=== PATIENT | female | born 1930 | race Caucasian/White ===

== ENCOUNTER 2016-09-17 13:19 | Inpatient (IN) | payer OTHER ==
[2016-09-17] MEDS ORDERED: NS 1,000 ML IV ONE (13:52)
--- NOTE | 2016-09-17 13:52 | EDPHY ---
H & P Stated Complaint: l sided abd/flank pain last night/now with blood in urine HPI/ROS: HPI CHIEF COMPLAINT: Abdominal times 24 hours HISTORY OF PRESENT ILLNESS: This patient is a very pleasant 86-year-old female , significant past medical history for diverticulosis and diverticulitis, urinary tract infection, GERD, hypertension, presents emergency room with 24 hours of lower abdominal pain specifically in her left lower quadrant suprapubic region. She went saw her primary care doctor today thought maybe she had a urinary tract infection. She had a clean urinalysis except for some blood. She is referred to the emergency room for possible kidney stone. Patient denies any vomiting, fever, flank pain. Pain is located in lower abdomen. No diarrhea. Past Medical History: Diverticulitis, diverticulosis, hypertension, GERD, urinary tract infection Past Surgical History: No recent surgery Social History: Denies daily use drugs alcohol tobacco products, at bedside, son at bedside Family History: Noncontributory ROS REVIEW OF SYSTEMS: A comprehensive 10 point review of systems is otherwise negative aside from elements mentioned in the history of present illness. Exam Constitutional triage nursing summary reviewed, vital signs reviewed, awake/ alert. Eyes normal conjunctivae and sclera, EOMI, PERRLA. HENT normal inspection, atraumatic, moist mucus membranes, no epistaxis, neck supple/ no meningismus, no raccoon eyes. Respiratory clear to auscultation bilaterally, normal breath sounds, no respiratory distress, no wheezing. Cardiovascular rate normal, regular rhythm, no murmur, no edema, distal pulses normal. Gastrointestinal tender palpation lower abdomen specifically left lower quadrant, suprapubic and right lower quadrant, moderate amount of tenderness no rebound, no guarding, normal bowel sounds, no distension, no pulsatile mass. Genitourinary no CVA tenderness. Musculoskeletal no midline vertebral tenderness, full range of motion, no calf swelling, no tenderness of extremities, no meningismus, good pulses, neurovascularly intact. Skin pink, warm, & dry, no rash, skin atraumatic. Neurologic awake, alert and oriented x 3, AAOx3, moves all 4 extremities equally, motor intact, sensory intact, CN II-XII intact, normal cerebellar, normal vision, normal speech. Psychiatric normal mood/affect. Heme/Lymph/Immune no lymphadenopathy. Differential diagnosis includes but is not limited to and in no particular order : Bowel obstruction, appendicitis, gallbladder disease, diverticulitis, colitis , enteritis, perforated viscus, gastritis, GERD, esophagitis, urinary tract infection, pyelonephritis, kidney stones Medical Decision Making: Plan for this patient IV establishment, IV blood work , check abdominal labs, including lactic acid, CT abdomen pelvis with IV contrast for acute diverticulitis colitis, or other intra acute intra-abdominal process. Re-evaluation: CT scan of the abdomen pelvis with IV contrast The results of the study are this shows acute diverticulitis without perforation or abscess or free fluid. The study was read by Dr. Jeremy Mcgraw I viewed the images myself on the PACS system. 1608: I did update the patient she has acute diverticulitis throughout her colon no free air no free fluid no abscess. I will admit the patient to Dr. Nye the hospitalist service [facility] surgical [facility]. She is hemodynamically stable. IV Cipro and IV Flagyl been ordered. She agrees with this plan. Resting comfortably. Source: Patient - Personal History Current Tetanus/Diphtheria Vaccine: Yes - Medical/Surgical History Hx Asthma: No Hx Chronic Respiratory Disease: No Hx Diabetes: No Hx Cardiac Disease: No Hx Renal Disease: No Hx Cirrhosis: No Hx Alcoholism: No Hx HIV/AIDS: No Hx Splenectomy or Spleen Trauma: No Other PMH: HTN, hyperthyroid, GERD, surinder, SBO, appy - Social History Smoking Status: Never smoked Constitutional: Initial Vital Signs Temperature (C) 36.6 C 09/17/16 13:30 Heart Rate 93 09/17/16 13:30 Respiratory Rate 18 09/17/16 13:30 Blood Pressure 137/72 H 09/17/16 13:30 O2 Sat (%) 95 09/17/16 13:30 O2 Delivery Mode Room Air Allergies/Adverse Reactions: aspirin Allergy (Verified 09/17/16 13:29) Sulfa (Sulfonamide Antibiotics) Allergy (Verified 09/17/16 13:29) Home Medications: Medication Instructions Recorded Irbesartan [Avapro 300 mg] 10/31/13 Mecobalamin [B-12] 10/31/13 Synthroid 09/17/16 Zantac 09/17/16 Medical Decision Making - Diagnostics Imaging Results: Imaging Impressions Abdomen CT 09/17/16 13:56 Impression: 1. Sigmoid diverticulitis with a small amount of free fluid with no visible abscess or free air. 2. Additional findings as above.. Findings discussed with Dr. Jaylan Diaz, on September 17, 2016 at 1552 hours. - Data Points Laboratory Results: Laboratory Results 09/17/16 14:00 09/17/16 14:00 09/17/16 09/17/16 09/17/16 14:57 14:25 14:00 WBC RBC Hgb Hct MCV MCH MCHC RDW Plt Count MPV Neut % (Auto) Lymph % (Auto) Collin % (Auto) Eos % (Auto) Baso % (Auto) Nucleat RBC Rel Count Absolute Neuts (auto) Absolute Lymphs (auto) Absolute Monos (auto) Absolute Eos (auto) Absolute Basos (auto) Absolute Nucleated RBC Immature Gran % Seg Neutrophils % Band Neutrophils % Lymphocytes % Monocytes % Immature Gran # Absolute Seg Neuts Absolute Band Neuts Absolute Lymphocytes Absolute Monocytes RBC/WBC/PLT Morphology Platelet Estimate Smear Review By PT INR APTT VBG Lactic Acid 0.7 mmol/L mmol/L (0.7-2.1) Sodium 133 mEq/L L mEq/L (134-144) Potassium 3.6 mEq/L mEq/L (3.5-5.2) Chloride 99 mEq/L mEq/L (97-110) Carbon Dioxide 24 mEq/l mEq/l (22-31) Anion Gap 10 mEq/L mEq/L (8-16) BUN 12 mg/dL mg/dL (7-23) Creatinine 0.8 mg/dL mg/dL (0.6-1.0) Estimated GFR > 60 Glucose 153 mg/dL H mg/dL (70-100) Calcium 9.0 mg/dL mg/dL (8.5-10.4) Total Bilirubin 0.9 mg/dL mg/dL (0.1-1.4) Conjugated Bilirubin 0.3 mg/dL mg/dL (0.0-0.5) Unconjugated Bilirubin 0.6 mg/dL mg/dL (0.0-1.1) AST 18 IU/L IU/L (14-46) ALT 31 IU/L IU/L (9-52) Alkaline Phosphatase 38 IU/L IU/L (38-126) Total Protein 6.6 g/dL g/dL (6.3-8.2) Albumin 3.8 g/dL g/dL (3.5-5.0) Lipase 171.0 IU/L IU/L (23-300) Urine Color YELLOW Urine Appearance CLEAR Urine pH 6.0 (5.0-7.5) Ur Specific Buhl 1.012 (1.002-1.030) Urine Protein 1+ H (NEGATIVE) Urine Ketones 1+ H (NEGATIVE) Urine Blood 2+ H (NEGATIVE) Urine Nitrate NEGATIVE (NEGATIVE) Urine Bilirubin NEGATIVE (NEGATIVE) Urine Urobilinogen NEGATIVE EU EU (0.2-1.0) Ur Leukocyte Esterase NEGATIVE (NEGATIVE) Urine RBC 10-15 /hpf H /hpf (0-3) Urine WBC NONE SEEN /hpf /hpf (0-3) Ur Epithelial Cells NONE SEEN /lpf /lpf (NONE-1+) Urine Bacteria TRACE /hpf H /hpf (NONE SEEN) Urine Mucus TRACE /lpf /lpf (NONE-1+) Urine Glucose NEGATIVE (NEGATIVE) 09/17/16 09/17/16 14:00 14:00 WBC 12.06 10^3/uL H 10^3/uL (3.80-9.50) RBC 4.02 10^6/uL L 10^6/uL (4.18-5.33) Hgb 12.3 g/dL L g/dL (12.6-16.3) Hct 36.1 % L % (38.0-47.0) MCV 89.8 fL fL (81.5-99.8) MCH 30.6 pg pg (27.9-34.1) MCHC 34.1 g/dL g/dL (32.4-36.7) RDW 13.8 % % (11.5-15.2) Plt Count 136 10^3/uL L 10^3/uL (150-400) MPV 11.1 fL fL (8.7-11.7) Neut % (Auto) Not Reported Lymph % (Auto) Not Reported Collin % (Auto) Not Reported Eos % (Auto) Not Reported Baso % (Auto) Not Reported Nucleat RBC Rel Count 0.0 % % (0.0-0.2) Absolute Neuts (auto) Not Reported Absolute Lymphs (auto) Not Reported Absolute Monos (auto) Not Reported Absolute Eos (auto) Not Reported Absolute Basos (auto) Not Reported Absolute Nucleated RBC 0.00 10^3/uL 10^3/uL (0-0.01) Immature Gran % Not Reported Seg Neutrophils % 65 % % Band Neutrophils % 1 % % Lymphocytes % 15 % % Monocytes % 19 % % Immature Gran # Not Reported Absolute Seg Neuts 7.84 10^/uL H 10^/uL (1.70-6.50) Absolute Band Neuts 0.12 10^3/uL 10^3/uL (0.00-0.70) Absolute Lymphocytes 1.81 10^3/uL 10^3/uL (1.00-3.00) Absolute Monocytes 2.29 10^3/uL H 10^3/uL (0.30-0.80) RBC/WBC/PLT Morphology NORMAL (NORMAL) Platelet Estimate DECREASED L (ADEQ) Smear Review By Pending PT 14.6 SEC SEC (12.0-15.0) INR 1.15 (0.83-1.16) APTT 27.7 SEC SEC (23.0-38.0) VBG Lactic Acid Sodium Potassium Chloride Carbon Dioxide Anion Gap BUN Creatinine Estimated GFR Glucose Calcium Total Bilirubin Conjugated Bilirubin Unconjugated Bilirubin AST ALT Alkaline Phosphatase Total Protein Albumin Lipase Urine Color Urine Appearance Urine pH Ur Specific Buhl Urine Protein Urine Ketones Urine Blood Urine Nitrate Urine Bilirubin Urine Urobilinogen Ur Leukocyte Esterase Urine RBC Urine WBC Ur Epithelial Cells Urine Bacteria Urine Mucus Urine Glucose Medications Given: Discontinued Medications Fentanyl (Sublimaze) 50 mcg IVP EDNOW ONE Stop: 09/17/16 13:57 Last Admin: 09/17/16 14:39 Dose: Not Given Sodium Chloride (Ns) 1,000 mls @ 0 mls/hr IV ONCE ONE; Wide Open PRN Reason: Protocol Stop: 09/17/16 13:53 Last Admin: 09/17/16 14:37 Dose: 1,000 mls Ondansetron HCl (Zofran) 4 mg IVP EDNOW ONE Stop: 09/17/16 13:57 Last Admin: 09/17/16 14:38 Dose: Not Given Departure - Departure Disposition: [facility] Inpatient Acute Clinical Impression: Acute diverticulitis Condition: Fair Referrals: Jaylan Franklin MD [Primary Care Provider] - As per Instructions
[2016-09-17] MEDS ORDERED: ONDANSETRON 4 MG/2 ML VIAL IVP ONE (13:56)
[2016-09-17] MEDS ORDERED: fentaNYL 100 MCG/2 ML INJ IVP ONE (13:56)
[2016-09-17 14:22] LABS: ADD DIFF? YES; ADD MORPH? NO; ADD SCAN? NO; ATYPICAL LYMPHOCYTE FLAG 10 (0-99); FRAGMENT RBC FLAG 0 (0-99); HEMATOCRIT 36.1 % (38.0-47.0); HEMOGLOBIN 12.3 g/dL (12.6-16.3); LEFT SHIFT FLG 0 (0-99); LIPEMIA HEMOLYSIS FLAG 90 (0-99); MEAN CELL HEMOGLOBIN 30.6 pg (27.9-34.1); MEAN CELL HEMOGLOBIN CONCENTR. 34.1 g/dL (32.4-36.7); MEAN CELL VOLUME 89.8 fL (81.5-99.8); MEAN PLATELET VOLUME 11.1 fL (8.7-11.7); PLATELET CLUMPS FLAG 20 (0-99); PLATELET COUNT 136 10^3/uL (150-400); RED BLOOD CELL COUNT 4.02 10^6/uL (4.18-5.33); RED CELL DISTRIBUTION WIDTH 13.8 % (11.5-15.2)
[2016-09-17 14:33] LABS: ALANINE AMINOTRANSFERASE 31 IU/L (9-52); ALBUMIN 3.8 g/dL (3.5-5.0); ALKALINE PHOSPHATASE 38 IU/L (38-126); ANION GAP 10 mEq/L (8-16); ASPARTATE AMINOTRANSFERASE 18 IU/L (14-46); BILIRUBIN,TOTAL 0.9 mg/dL (0.1-1.4); BILIRUBIN-CONJUGATED 0.3 mg/dL (0.0-0.5); BILIRUBIN-UNCONJUGATED 0.6 mg/dL (0.0-1.1); CARBON DIOXIDE 24 mEq/l (22-31); CHLORIDE 99 mEq/L (97-110); CREATININE 0.8 mg/dL (0.6-1.0); GLOMERULAR FILTRATION RATE > 60; GLUCOSE 153 mg/dL (70-100); POTASSIUM 3.6 mEq/L (3.5-5.2); SODIUM 133 mEq/L (134-144); TOTAL PROTEIN 6.6 g/dL (6.3-8.2)
[2016-09-17 14:40] LABS: INR 1.15 (0.83-1.16); PROTIME(PATIENT) 14.6 SEC (12.0-15.0)
[2016-09-17 14:41] LABS: APTT 27.7 SEC (23.0-38.0)
[2016-09-17] MEDS ORDERED: IOPAMIDOL (ISOVUE-300) 100 ML BTL ONE (14:50)
[2016-09-17 14:56] LABS: COLOR YELLOW; LEUKOCYTE ESTERASE,URINE NEGATIVE (NEGATIVE); NITRITE,URINE NEGATIVE (NEGATIVE)
[2016-09-17 15:08] LABS: BACTERIA TRACE /hpf (NONE SEEN); MUCUS TRACE /lpf (NONE-1+); WBC,URINE NONE SEEN /hpf (0-3)
[2016-09-17 15:12] LABS: PLATELET ESTIMATE DECREASED (ADEQ)
[2016-09-17] MEDS ORDERED: CIPROFLOXACIN 400 MG/DEXTROSE 200 ML IV ONE (15:55)
[2016-09-17] MEDS ORDERED: ONDANSETRON 4 MG/2 ML VIAL IVP PRN (16:19)
[2016-09-17] MEDS ORDERED: ONDANSETRON DISINTEGRATING 4 MG TAB PO PRN (16:19)
[2016-09-17] MEDS ORDERED: ACETAMINOPHEN 325 MG TAB PO PRN (16:19)
[2016-09-17] MEDS ORDERED: HYDROmorphONE/DILAUDID 1 MG/ML SYR IVP PRN (16:55)
--- NOTE | 2016-09-17 17:45 | GHP ---
[f rep st] HISTORY AND PHYSICAL DATE OF ADMISSION: 09/17/2016 CHIEF COMPLAINT: Diverticulitis. HISTORY OF PRESENT ILLNESS: a very pleasant, 86-year-old female with history of recurrent diverticulitis, history of a partial right hemicolectomy (unknown reason per patient) presenting with acute abdominal pain similar to prior episodes of diverticulitis. Lower abdominal pain started Thursday in that was achy in nature. It was so bad last night that she was doubled over. c/o subjective fevers, chills, and sweats. Saw her PCP, Dr. Franklin, today and was told her temperature was a 103. She denies any nausea, vomiting or diarrhea. Had a headache today. Her last bowel movement was yesterday, but had to strain. Could not have a bowel movement today due to abdominal pain. She has been treated several times for same issue here and in [place]. Abdominal pain, constipation and diarrhea is intermittent. Seen by [facility] dermatology previously, but no definitive answer for intermittent abdominal pain. REVIEW OF SYSTEMS: I completed a 10-point review of systems, negative except as noted in HPI. PAST MEDICAL HISTORY: 1. Moderate diverticulitis in 2011 at [facility]. 2. Recurrent abdominal pain. Intermittent diarrhea/constipation. 3. GERD. 4. Hypertension. 5. Hypothyroidism. 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 PAST SURGICAL HISTORY: 1. Cholecystectomy. 2. Partial right hemicolectomy based on imaging here. Patient not clear on why she had that surgery in the past. 3. Appendectomy. 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 Has 1 child. No alcohol, tobacco or illicits. ALLERGIES: Sulfa, aspirin, added ciprofloxacin due to tendinopathy. FAMILY HISTORY: No bowel cancers. PHYSICAL EXAM: VITAL SIGNS: Temperature 36.6, blood pressure 132/72, heart rate 93 now 78, 90% on room air. GENERAL: Well-appearing female, in no acute distress, lying in bed. HEENT: PERRLA. EOMI. Oropharynx clear. CV: Regular rate and rhythm. No murmurs, gallops, rubs. LUNGS: Clear to auscultation bilaterally. ABDOMEN: Soft, nondistended. Tender lower quadrant midline. No rebound or guarding. Mild bowel sounds. MUSCULOSKELETAL: 5/5 upper lower extremity strength. NEURO: 2 through 12 intact. PSYCH: Alert and oriented x3. Very pleasant. LABORATORY DATA: WBCs 12, hemoglobin 12.3, hematocrit 36.1, platelets 136. Sodium 133, potassium 3.6, chloride 99, carbon dioxide 24, creatinine 0.8, glucose 153, calcium 9. LFTs within normal. CT scan: Circumferential thickening of the sigmoid colon in the region of innumerable diverticula with moderate mesenteric stranding and a region of small amount of fluid with no visible free air or abscess. The colon and small bowel are normal caliber. Moderate stool is present in the colon. Partial right hemicolectomy is suspected with scattered surgical clips. ASSESSMENT AND PLAN: 1. Acute diverticulitis: has been treated several times in the past. CT today shows heavy burden of diverticula in the sigmoid colon today with some mesenteric stranding but no overt perforation. WBC mildly elevated to 12. Treat with Ertapenem given fluoroquinolone-tendinopathy. Dr. Nunes will evaluated. Clear liquid now and low-fiber for 2 weeks 2. Hypothyroidism: levothyroxine. 3. Hypertension: Avapro. 4. Diet: Clears. 5. Deep venous thrombosis prophylaxis: SCDs. Disp: warrants observation admission given acute diverticulitis requiring IV abx and surgical evaluation. /[id number]/MODL MTDD
[2016-09-17] MEDS: NS 1,000 ML IV SCH (17:59)
[2016-09-17] MEDS: ERTAPENEM 1 GM in NS 100 ML IV SCH (18:02)
--- NOTE | 2016-09-17 19:44 | PDCONSULT ---
Discotheque [employer]cer Note: Surgical Consult CC: abd pain HPI: Mendel is an 86 y/o female who presented today with abdominal pain of 2 days duration. She was seen in the ED and a CT of the abd/pelvis was performed and she was found to have sigmoid diverticulitis. She has had several attacks in the past. She was admitted by Dr. Nye and surgical consultation was requested. PMH: appendectomy with resection of cecum/terminal ileum for perforated appendicitis 10 years ago (complicated by wound infection) cholecystectomy Hx: HTN, hypothyroidism, GERD, remote hx Tb meds: Irbesartan, Levothyroxine, Ranitidine all: aspirin, cipro (tendinopathy), sulfa non-smoker FH: grandmother of colon cancer in her 70's SH: , originally from [facility] she and her alternate living in [place] and [place] every 3 [address] daily for exercise PE: pleasant and articulate elderly woman in mild distress abd: soft/+BS, tender suprapubic with mild guarding/no rebound RLQ transverse incision with incisional hernia CT scan reviewed: sigmoid diverticulitis with small amount of free fluid in the pelvis no free air, prior partial right colectomy, surgical cholecystectomy wbc 12K UA >20 rbc Imp:1.recurrent diverticulitis, uncomplicated thus far 2. prior partial right colectomy for perforated appendicitis 3. s/p cholecystectomy 4. incision hernia 5. HTN 6. hypothyroidism 7. GERD 8. Family history of colon cancer 9. remote history of Tb 10. micro hematuria Rec: I agree with Ertapenam for initial treatment and would consider switching to Amoxacillin/Clavulonic Acid when she is clinically improved. We discussed the indications for emergent and elective colon resection. There is no indication for emergent intervention at this time. She would like to consider elective partial colectomy and is in reasonable enough health to consider this. I would wait 6 weeks and refer her for colonoscopy prior to surgery. Bjorn Nunes MD, FACS
[2016-09-17] MEDS: FAMOTIDINE 20 MG TAB PO SCH (20:30)
[2016-09-18 05:01] LABS: HEMOGLOBIN 12.4 g/dL (12.6-16.3); MEAN CELL HEMOGLOBIN 31.2 pg (27.9-34.1); MEAN CELL HEMOGLOBIN CONCENTR. 34.4 g/dL (32.4-36.7); MEAN CELL VOLUME 90.5 fL (81.5-99.8); RED BLOOD CELL COUNT 3.98 10^6/uL (4.18-5.33)
[2016-09-18] MEDS: NS 1,000 ML IV SCH (05:08)
[2016-09-18 05:13] LABS: ANION GAP 8 mEq/L (8-16); CALCIUM 8.6 mg/dL (8.5-10.4); CARBON DIOXIDE 21 mEq/l (22-31); CHLORIDE 108 mEq/L (97-110); CREATININE 0.7 mg/dL (0.6-1.0); GLOMERULAR FILTRATION RATE > 60; GLUCOSE 91 mg/dL (70-100); POTASSIUM 3.6 mEq/L (3.5-5.2); SODIUM 137 mEq/L (134-144)
--- NOTE | 2016-09-18 06:41 | SOAPPROG ---
Downtime Inpatient Late Entry SOAP Note: Ilga is resting comfotably/she has only had water to drink and is not passing flatus or stool/no fever spikes-BP is elevated Abd: soft, tender LLQ -no guarding or rebound Her wbc is 9.8 platlets down to 118K Imp: diverticulitis mild anemia/thromocytopenia mild hypertension hematuria Rec: clear liquid diet, continue IV Ertapenam and transition to oral ABX tomorrow if continued improvement Vivienne Nunes MD, FACS
[2016-09-18] MEDS: ERTAPENEM 1 GM in NS 100 ML IV SCH (08:42)
[2016-09-18] MEDS: CYANO/VITAMIN B12 1000 MCG TAB PO SCH (08:44)
[2016-09-18] MEDS: LEVOTHYROXINE 50 MCG TAB PO SCH (08:45)
[2016-09-18] MEDS: IRBESARTAN 75 MG TAB PO SCH (08:45)
[2016-09-18] MEDS: FAMOTIDINE 20 MG TAB PO SCH ×2 (08:45→21:30)
--- NOTE | 2016-09-18 13:33 | HOSPPROG ---
Hospitalist Progress Note Assessment/Plan: * acute diverticulitis * improving * continue Invanz * advancing diet * possibly home tomorrow on oral antibiotics * history of hypertension * hypothyroidism Subjective: Abdominal pain is resolved. Objective: Vital Signs Temp Pulse Resp BP Pulse Ox 36.8 C 68 14 138/64 H 90 L 09/18/16 11:57 09/18/16 11:57 09/18/16 11:57 09/18/16 11:57 09/18/16 11:57 Laboratory Results 09/18/16 04:38 09/18/16 04:38 09/17/16 09/18/16 09/19/16 05:59 05:59 05:59 Intake Total 1000 Output Total 600 Balance 400 PT 14.6 SEC (12.0-15.0) 09/17/16 14:00 INR 1.15 (0.83-1.16) 09/17/16 14:00 - Physical Exam Constitutional: no apparent distress, appears nourished, not in pain Eyes: anicteric sclera, EOMI Ears, Nose, Mouth, Throat: moist mucous membranes, hearing normal Cardiovascular: regular rate and rhythym Respiratory: no respiratory distress, no rales or rhonchi, clear to auscultation Gastrointestinal: normoactive bowel sounds, other ( Some distention, soft, tympanic no tenderness) Skin: warm Neurologic: AAOx3 Psychiatric: interacting appropriately, not anxious, not encephalopathic, thought process linear ICD10 Worksheet Patient Problems: Problems Problem Status Onset Acute diverticulitis Acute
[2016-09-19 05:26] LABS: HEMATOCRIT 33.7 % (38.0-47.0); HEMOGLOBIN 11.7 g/dL (12.6-16.3); MEAN CELL HEMOGLOBIN 31.2 pg (27.9-34.1); MEAN CELL HEMOGLOBIN CONCENTR. 34.7 g/dL (32.4-36.7); MEAN CELL VOLUME 89.9 fL (81.5-99.8); RED BLOOD CELL COUNT 3.75 10^6/uL (4.18-5.33); RED CELL DISTRIBUTION WIDTH 13.8 % (11.5-15.2)
[2016-09-19] MEDS: LEVOTHYROXINE 50 MCG TAB PO SCH (07:36)
[2016-09-19] MEDS: FAMOTIDINE 20 MG TAB PO SCH (07:36)
[2016-09-19] MEDS: CYANO/VITAMIN B12 1000 MCG TAB PO SCH (07:37)
[2016-09-19 08:56] VITALS: BP 133/81; PULSE 68; RESP 18; TEMP 98.2; O2SAT 91
[2016-09-19] MEDS: ERTAPENEM 1 GM in NS 100 ML IV SCH (10:31)
[2016-09-19] MEDS: IRBESARTAN 75 MG TAB PO SCH (10:31)
--- NOTE | 2016-09-19 14:36 | GDS ---
[f rep st] DISCHARGE SUMMARY DISCHARGE DIAGNOSES: 1. Acute diverticulitis. 2. Hypertension. HOSPITAL COURSE: This is an 86-year-old female who presented with abdominal pain. The patient was diagnosed with diverticulitis on CT scan. She was started on Invanz. Her white blood cell count an d pain improved. She is ready to be discharged. DISPOSITION: Home. DISCHARGE MEDICATIONS: She will continue Augmentin for 10 more days to complete a 14-day course. TIME SPENT: Greater than 30 minutes was spent in discharge, especially counseling the patient on di et and dietary recommendations, and for reasons to come back to the Emergency Department if she wors ens. /[id number]/MODL
== END 2016-09-19 15:04 | disposition home or self-care (01) | DRG 392 ==
LOC: INTOOBSV 16:19 → F3E 17:26 → OBSVTOIN 09-18 14:33
PROVIDERS: ADMIT Internal Medicine; ATTEND Internal Medicine
DX: K57.32 Diverticulitis of large intestine without perforation or abscess without bleeding (principal); D64.9 Anemia, unspecified; I10 Essential (primary) hypertension; K21.9 Gastro-esophageal reflux disease without esophagitis; E03.9 Hypothyroidism, unspecified; Z86.11 Personal history of tuberculosis; Z87.440 Personal history of urinary (tract) infections
CPT/HCPCS: 81003-QW-PO; G0378; G0463-PO; J0744; J1335; J2405; J3010; Q9967

== ENCOUNTER → 2016-10-22 | Outpatient (CLI) | payer OTHER | LOC: FIMAGING 10:04 | PROVIDERS: ATTEND Internal Medicine | DX: E04.1 Nontoxic single thyroid nodule (principal) ==

== ENCOUNTER → 2017-04-08 | Outpatient (CLI) | payer OTHER | LOC: FIMAGING 14:02 | PROVIDERS: ATTEND Internal Medicine | DX: E04.1 Nontoxic single thyroid nodule (principal) ==

== ENCOUNTER → 2017-06-11 | Outpatient (CLI) | payer OTHER ==
[~2017-06-11] MED LIST: IOPAMIDOL (ISOVUE-300) 100 ML BTL ONE
== END ==
LOC: FIMAGING 10:27
PROVIDERS: ATTEND Internal Medicine Gastroenterology
DX: K57.32 Diverticulitis of large intestine without perforation or abscess without bleeding (principal)
CPT/HCPCS: 74177; Q9967

== ENCOUNTER 2017-06-14 19:42 | Inpatient (IN) | payer OTHER ==
[2017-06-14] MEDS ORDERED: PANTOPRAZOLE SODIUM 40 MG VIAL IVP ONE (20:28)
[2017-06-14] MEDS ORDERED: NS 1,000 ML IV ONE (20:28)
--- NOTE | 2017-06-14 20:39 | EDPHY ---
H & P Time Seen by Provider: 06/14/17 20:16 HPI/ROS: HPI Lower abdominal pain, history of diverticulitis. 87-year-old female by private vehicle with family. This patient has a long history of diverticulitis. She reports that recently she has been on 2 rounds of different antibiotics. She does not know the name of these antibiotics and I cannot find any medical records but she thinks that they include ciprofloxacin and metronidazole. She is currently being managed by head still operator Dr. Demarco. Dr. Demarco ordered a CT scan of her abdomen and pelvis this past June 11. This showed residual sigmoid diverticulitis and was otherwise unremarkable. Today she reports worsening left lower quadrant pain with radiation into her lower back. She reports that the pain became much more severe after eating some toast and egg and around lunchtime. She then tried have a bowel movement and was unable to. After some straining she then had a large episode of diarrhea with some blood mixed in with it. ROS: Constitutional: No fever, no chills. No weakness. Eyes: No discharge. No changes in vision. ENT: No sore throat. No nasal congestion or rhinorrhea. Respiratory: No cough. No shortness of breath. Cardiac: No chest pain, no palpitations. Gastrointestinal: As above. No vomiting. Genitourinary: No hematuria. No dysuria or increased frequency with urination. Musculoskeletal: No back pain. No neck pain. No myalgias or arthralgias. Skin: No rashes. Neurological: No headache. No focal weakness or altered sensation. Past medical history: As above. Hypertension, hypothyroidism, cholecystectomy , GERD, appendectomy. Social history: Here with her and son. Nonsmoker. No alcohol. Physical Exam: General Appearance: Alert, no distress at this time. This patient is responding to questions appropriately and in full sentences. This patient appears well-hydrated and well-nourished. Eyes: Pupils equal and round no pallor or injection. No lid edema, erythema or injection. Respiratory: There are no retractions, lungs are clear to auscultation with good air movement bilaterally. Cardiovascular: Regular rate and rhythm. No murmur. Gastrointestinal: Abdomen is soft with mild to moderate left lower quadrant tenderness on palpation, no masses, bowel sounds normal. No focal tenderness at McBurney's point. No White sign. Neurological: Motor sensory function is grossly intact. Cranial nerves are normal. Gait is normal. Skin: Warm and dry, no rashes. Musculoskeletal: Neck is supple and nontender. Extremities are symmetrical. All joints range without pain or impingement. Psychiatric: No agitation. No depression. Database: EKG: Imaging: Procedures: Emergency department course: IV placed. She was placed on a monitor. Vital signs reviewed. She is hypertensive. Vital signs otherwise normal. She is afebrile. She was started on IV normal saline with 1 L to be given over the next hour. 10:15 p.m., patient re-evaluated. She is resting comfortably at this time. She declines any pain medication. I discussed the results of her CT scan which was obtained last as noted above. I discussed the diagnosis of continued diverticulitis. She will be given 3 g of IV Unasyn in the emergency department. I discussed admission. Her son is present with her. All of their questions were answered. 10:20 p.m., spoke with on-call hospitalist Dr. Agarwal. Case discussed in detail with her. She accepts this patient for admission. The patient's remaining emergency department course under my care has been uneventful. She was admitted in stable condition. Differential Diagnosis: The differential diagnosis on this patient includes but is not limited to diverticulitis, diverticulosis. This represents a partial list of diagnoses considered. These considerations are based on history, physical exam, past history, reassessment and diagnostic testing. Smoking Status: Never smoked Constitutional: Initial Vital Signs Temperature (C) 36.5 C 06/14/17 19:46 Heart Rate 78 06/14/17 19:46 Respiratory Rate 18 06/14/17 19:46 Blood Pressure 198/81 H 06/14/17 19:46 O2 Sat (%) 94 06/14/17 19:46 O2 Delivery Mode Room Air Allergies/Adverse Reactions: aspirin Allergy (Verified 06/14/17 19:45) ciprofloxacin Allergy (Verified 06/14/17 19:45) Sulfa (Sulfonamide Antibiotics) Allergy (Verified 06/14/17 19:45) Home Medications: Medication Instructions Recorded Irbesartan [Avapro] 75 mg PO DAILY 09/17/16 Levothyroxine Sodium [SYNTHROID] 50 mcg PO DAILY 09/17/16 Ranitidine HCl [Zantac] 150 mg PO DAILY 09/17/16 Vitamin B12 (*) 1,000 mcg PO DAILY 09/17/16 Lact Cmb2/S.thermophl/Bif Cmb1 1 each PO DAILY #30 cap 09/19/16 [Vsl#3 Cap (*)] Medical Decision Making - Data Points Laboratory Results: Laboratory Results 06/14/17 20:10 06/14/17 20:10 06/14/17 06/14/17 06/14/17 21:09 20:50 20:10 WBC RBC Hgb Hct MCV MCH MCHC RDW Plt Count MPV Neut % (Auto) Lymph % (Auto) [place] % (Auto) Eos % (Auto) Baso % (Auto) Nucleat RBC Rel Count Absolute Neuts (auto) Absolute Lymphs (auto) Absolute Monos (auto) Absolute Eos (auto) Absolute Basos (auto) Absolute Nucleated RBC Immature Gran % Immature Gran # PT 16.7 SEC H SEC (12.0-15.0) INR 1.33 H (0.83-1.16) APTT 35.7 SEC SEC (23.0-38.0) Sodium 142 mEq/L mEq/L (135-145) Potassium 3.8 mEq/L mEq/L (3.5-5.2) Chloride 103 mEq/L mEq/L (97-110) Carbon Dioxide 23 mEq/l mEq/l (22-31) Anion Gap 16 mEq/L mEq/L (8-16) BUN 11 mg/dL mg/dL (7-23) Creatinine 0.7 mg/dL mg/dL (0.6-1.0) Estimated GFR > 60 Glucose 111 mg/dL H mg/dL (70-100) Calcium 9.4 mg/dL mg/dL (8.5-10.4) Total Bilirubin 0.6 mg/dL mg/dL (0.1-1.4) Conjugated Bilirubin 0.5 mg/dL mg/dL (0.0-0.5) Unconjugated Bilirubin 0.1 mg/dL mg/dL (0.0-1.1) AST 22 IU/L IU/L (14-46) ALT 25 IU/L IU/L (9-52) Alkaline Phosphatase 49 IU/L IU/L (38-126) Total Protein 9.4 g/dL H g/dL (6.3-8.2) Albumin 3.8 g/dL g/dL (3.5-5.0) Patient ABO/Rh A POSITIVE Antibody Screen NEGATIVE 06/14/17 20:10 WBC 4.43 10^3/uL 10^3/uL (3.80-9.50) RBC 4.05 10^6/uL L 10^6/uL (4.18-5.33) Hgb 12.4 g/dL L g/dL (12.6-16.3) Hct 36.4 % L % (38.0-47.0) MCV 89.9 fL fL (81.5-99.8) MCH 30.6 pg pg (27.9-34.1) MCHC 34.1 g/dL g/dL (32.4-36.7) RDW 14.6 % % (11.5-15.2) Plt Count 116 10^3/uL L 10^3/uL (150-400) MPV 11.8 fL H fL (8.7-11.7) Neut % (Auto) 34.7 % L % (39.3-74.2) Lymph % (Auto) 46.5 % H % (15.0-45.0) [place] % (Auto) 17.4 % H % (4.5-13.0) Eos % (Auto) 0.7 % % (0.6-7.6) Baso % (Auto) 0.2 % L % (0.3-1.7) Nucleat RBC Rel Count 0.0 % % (0.0-0.2) Absolute Neuts (auto) 1.54 10^3/uL L 10^3/uL (1.70-6.50) Absolute Lymphs (auto) 2.06 10^3/uL 10^3/uL (1.00-3.00) Absolute Monos (auto) 0.77 10^3/uL 10^3/uL (0.30-0.80) Absolute Eos (auto) 0.03 10^3/uL 10^3/uL (0.03-0.40) Absolute Basos (auto) 0.01 10^3/uL L 10^3/uL (0.02-0.10) Absolute Nucleated RBC 0.00 10^3/uL 10^3/uL (0-0.01) Immature Gran % 0.5 % % (0.0-1.1) Immature Gran # 0.02 10^3/uL 10^3/uL (0.00-0.10) PT INR APTT Sodium Potassium Chloride Carbon Dioxide Anion Gap BUN Creatinine Estimated GFR Glucose Calcium Total Bilirubin Conjugated Bilirubin Unconjugated Bilirubin AST ALT Alkaline Phosphatase Total Protein Albumin Patient ABO/Rh Antibody Screen Medications Given: Discontinued Medications Sodium Chloride (Ns) 1,000 mls @ 0 mls/hr IV EDNOW ONE; Wide Open PRN Reason: Protocol Stop: 06/14/17 20:29 Last Admin: 06/14/17 20:49 Dose: 1,000 mls Pantoprazole Sodium (Protonix) 80 mg IVP EDNOW ONE Stop: 06/14/17 20:29 Last Admin: 06/14/17 20:50 Dose: 80 mg Departure - Departure Disposition: [facility] Inpatient Acute Clinical Impression: Diverticulitis, Rectal bleeding, Diarrhea
[2017-06-14 21:03] LABS: PLATELET COUNT 116 10^3/uL (150-400)
[2017-06-14 21:32] LABS: INR 1.33 (0.83-1.16); PROTIME(PATIENT) 16.7 SEC (12.0-15.0)
[2017-06-14] MEDS ORDERED: AMPICILLIN/SULBACTAM 3 GM VIAL IV ONE (22:18)
[2017-06-14] MEDS ORDERED: HYDROmorphONE/DILAUDID 2 MG/ML INJ IVP PRN (22:36)
[2017-06-14] MEDS ORDERED: HYDROCODONE/APAP 5/325 TAB PO PRN (22:36)
[2017-06-14] MEDS ORDERED: ONDANSETRON 4 MG/2 ML VIAL IVP PRN (22:36)
[2017-06-14] MEDS ORDERED: ACETAMINOPHEN 325 MG TAB PO PRN (22:36)
[2017-06-15] MEDS: NS 1,000 ML IV SCH ×2 (00:52→14:41)
[2017-06-15 04:51] LABS: PLATELET COUNT 102 10^3/uL (150-400)
--- NOTE | 2017-06-15 05:11 | PDGENHP ---
History and Physical - Chief Complaint Lower quadrant abdominal pain - History of Present Illness Source-patient provides history and appears reliable. Her and son are at bedside supplements details. Case was discussed with ED provider. EMR was reviewed. HPI - this is a very pleasant 87-year-old female with past medical history significant for recurrent diverticulitis, diabetes type 2 diet controlled, GERD , history of remote TB, thyroid nodule, HTN who presents emergency department today with complaints of increasing abdominal pain left lower quadrant. Patient also notes that she has experienced 2 episodes of bloody diarrhea the 1st which was mixed with stool in the 2nd which was jan red blood bright red. Patient also is reporting some radiating pain to her left back which is a new symptom for her compared to previous episodes. She reports some subjective fevers and chills today. She has had some mild nausea without any vomiting. Patient did previously see her PCP a few days ago and started on Flagyl and Cipro. Patient does have a history of tendinopathy on with Cipro but no anaphylaxis. Patient reports that she has been taking her antibiotics on however she it may have initially started to feel a bit better on shortly after discontinuing antibiotics she began to feel worsening abdominal pain. Patient has been evaluated by Dr. Knight with GI. She was referred over for on a CT of her abdomen which showed persistent disease in the sigmoid colon. History Information - Allergies/Home Medication List Allergies/Adverse Reactions: aspirin Allergy (Verified 06/14/17 19:45) ciprofloxacin Allergy (Verified 06/14/17 19:45) Sulfa (Sulfonamide Antibiotics) Allergy (Verified 06/14/17 19:45) Home Medications: Irbesartan [Avapro] 75 mg PO DAILY 09/17/16 [Last Taken 09/17/16] Levothyroxine Sodium [SYNTHROID] 50 mcg PO DAILY 09/17/16 [Last Taken 09/16/16] Ranitidine HCl [Zantac] 150 mg PO DAILY 09/17/16 [Last Taken 09/16/16] Vitamin B12 (*) 1,000 mcg PO DAILY 09/17/16 [Last Taken Unknown] I have personally reviewed and updated: family history, medical history, social history, surgical history - Past Medical History Additional medical history: Diverticulitis, diabetes type 2 diet controlled, GERD, history TB, history of thyroid nodule, hypertension - Surgical History Additional surgical history: Slow cholecystectomy, appendectomy, partial colectomy right side of her colon at the time of her appendectomy. - Family History Additional family history: Mother with CAD and dementia, sister with VT, father with VT - Social History Smoking Status: Never smoked Alcohol Use: None Drug Use: None Additional social history: Patient is and lives with her . She spends part of the year in [place] any other part mentioned in. She has not had recent travel. Cor status-DNR Review of Systems Review of Systems: ROS: 10pt was reviewed & negative except for what was stated in HPI & below Constitutional: Reports: chills, fever EENMT: Denies: blurred vision, nose congestion Cardiac: Reports: no symptoms Respiratory: Reports: no symptoms Gastrointestinal: Reports: blood streaked stools, rectal bleeding (See HPI), nausea. Denies: vomitting Muscolosketal: Reports: back pain (Left lower quadrant radiating to the back). Denies: muscle pain Neurological: Reports: headache. Denies: tingling, weakness Hematologic/Lymphatic: Reports: no symptoms Physical Exam Physical Exam: Selected Entries 06/14/17 06/14/17 19:46 22:00 Blood Pressure Automatic Method Heart Rate 78 67 Respiratory 18 18 Rate O2 Sat (%) 94 96 Temperature (C) 36.5 C Blood Pressure 198/81 H 161/70 H Mean Arterial 120 H 100 Pressure (MAP) O2 Delivery Room Air Room Air Mode Temperature Oral Source Constitutional: no apparent distress, not in pain, other (NAD. Pleasant elderly frail-appearing female is lying quietly in bed. Her and son are at bedside.) Eyes: PERRL, anicteric sclera, EOMI Ears, Nose, Mouth, Throat: no oral mucosal ulcers, dry mucous membranes, other ( No nasal discharge), No poor dentition Cardiovascular: regular rate and rhythym, no murmur, rub, or gallop, No tachycardia, No edema Peripheral Pulses: 2+: dorsalis-pedis (R), dorsalis-pedis (L) Respiratory: no respiratory distress, no rales or rhonchi, clear to auscultation Gastrointestinal: normoactive bowel sounds, no palpable masses, tenderness ( Left lower quadrant tenderness to palpation is mild no rebound or guarding.), distension (Minimal), other (Multiple well-healed surgical scars.) Genitourinary: no bladder tenderness, No brooks in urethra Skin: warm, normal color, no rashes or abrasions Musculoskeletal: full muscle strength, other (Patient moves all extremities while lying in bed.), No generalized weakness Neurologic: AAOx3, sensation intact bilaterally, other (Nonfocal exam. Cranial nerves grossly intact.), No weakness, No facial droop Psychiatric: interacting appropriately, not anxious, not encephalopathic, thought process linear Lab Data & Imaging Review 06/15/17 04:32 06/15/17 04:32 WBC 4.57 10^3/uL (3.80-9.50) 06/15/17 04:32 RBC 3.53 10^6/uL (4.18-5.33) L 06/15/17 04:32 Hgb 11.0 g/dL (12.6-16.3) L 06/15/17 04:32 Hct 31.6 % (38.0-47.0) L 06/15/17 04:32 MCV 89.5 fL (81.5-99.8) 06/15/17 04:32 MCH 31.2 pg (27.9-34.1) 06/15/17 04:32 MCHC 34.8 g/dL (32.4-36.7) 06/15/17 04:32 RDW 14.8 % (11.5-15.2) 06/15/17 04:32 Plt Count 102 10^3/uL (150-400) L 06/15/17 04:32 MPV 11.3 fL (8.7-11.7) 06/15/17 04:32 Neut % (Auto) 53.7 % (39.3-74.2) 06/15/17 04:32 Lymph % (Auto) 27.8 % (15.0-45.0) 06/15/17 04:32 [place] % (Auto) 17.7 % (4.5-13.0) H 06/15/17 04:32 Eos % (Auto) 0.2 % (0.6-7.6) L 06/15/17 04:32 Baso % (Auto) 0.2 % (0.3-1.7) L 06/15/17 04:32 Nucleat RBC Rel Count 0.0 % (0.0-0.2) 06/15/17 04:32 Absolute Neuts (auto) 2.45 10^3/uL (1.70-6.50) 06/15/17 04:32 Absolute Lymphs (auto) 1.27 10^3/uL (1.00-3.00) 06/15/17 04:32 Absolute Monos (auto) 0.81 10^3/uL (0.30-0.80) H 06/15/17 04:32 Absolute Eos (auto) 0.01 10^3/uL (0.03-0.40) L 06/15/17 04:32 Absolute Basos (auto) 0.01 10^3/uL (0.02-0.10) L 06/15/17 04:32 Absolute Nucleated RBC 0.00 10^3/uL (0-0.01) 06/15/17 04:32 Immature Gran % 0.4 % (0.0-1.1) 06/15/17 04:32 Immature Gran # 0.02 10^3/uL (0.00-0.10) 06/15/17 04:32 PT 16.7 SEC (12.0-15.0) H 06/14/17 21:09 INR 1.33 (0.83-1.16) H 06/14/17 21:09 APTT 35.7 SEC (23.0-38.0) 06/14/17 21:09 Sodium 142 mEq/L (135-145) 06/14/17 20:10 Potassium 3.8 mEq/L (3.5-5.2) 06/14/17 20:10 Chloride 103 mEq/L (97-110) 06/14/17 20:10 Carbon Dioxide 23 mEq/l (22-31) 06/14/17 20:10 Anion Gap 16 mEq/L (8-16) 06/14/17 20:10 BUN 11 mg/dL (7-23) 06/14/17 20:10 Creatinine 0.7 mg/dL (0.6-1.0) 06/14/17 20:10 Estimated GFR > 60 06/14/17 20:10 Glucose 111 mg/dL (70-100) H 06/14/17 20:10 Calcium 9.4 mg/dL (8.5-10.4) 06/14/17 20:10 Total Bilirubin 0.6 mg/dL (0.1-1.4) 06/14/17 20:10 Conjugated Bilirubin 0.5 mg/dL (0.0-0.5) 06/14/17 20:10 Unconjugated Bilirubin 0.1 mg/dL (0.0-1.1) 06/14/17 20:10 AST 22 IU/L (14-46) 06/14/17 20:10 ALT 25 IU/L (9-52) 06/14/17 20:10 Alkaline Phosphatase 49 IU/L (38-126) 06/14/17 20:10 Total Protein 9.4 g/dL (6.3-8.2) H 06/14/17 20:10 Albumin 3.8 g/dL (3.5-5.0) 06/14/17 20:10 Urine Color PALE YELLOW 06/14/17 22:00 Urine Appearance CLEAR 06/14/17 22:00 Urine pH 6.0 (5.0-7.5) 06/14/17 22:00 Ur Specific [place] 1.004 (1.002-1.030) 06/14/17 22:00 Urine Protein NEGATIVE (NEGATIVE) 06/14/17 22:00 Urine Ketones TRACE (NEGATIVE) H 06/14/17 22:00 Urine Blood 2+ (NEGATIVE) H 06/14/17 22:00 Urine Nitrate NEGATIVE (NEGATIVE) 06/14/17 22:00 Urine Bilirubin NEGATIVE (NEGATIVE) 06/14/17 22:00 Urine Urobilinogen NEGATIVE EU (0.2-1.0) 06/14/17 22:00 Ur Leukocyte Esterase NEGATIVE (NEGATIVE) 06/14/17 22:00 Urine RBC 10-15 /hpf (0-3) H 06/14/17 22:00 Urine WBC NONE SEEN /hpf (0-3) 06/14/17 22:00 Ur Epithelial Cells NONE SEEN /lpf (NONE-1+) 06/14/17 22:00 Urine Glucose NEGATIVE (NEGATIVE) 06/14/17 22:00 Patient ABO/Rh A POSITIVE 06/14/17 20:50 Antibody Screen NEGATIVE 06/14/17 20:50 Laboratory Tests 06/14/17 20:10 WBC 4.43 RBC 4.05 L Hgb 12.4 L Hct 36.4 L MCV 89.9 MCH 30.6 MCHC 34.1 RDW 14.6 Plt Count 116 L MPV 11.8 H Neut % (Auto) 34.7 L Lymph % (Auto) 46.5 H [place] % (Auto) 17.4 H Eos % (Auto) 0.7 Baso % (Auto) 0.2 L Nucleat RBC Rel Count 0.0 Absolute Neuts (auto) 1.54 L Absolute Lymphs (auto) 2.06 Absolute Monos (auto) 0.77 Absolute Eos (auto) 0.03 Absolute Basos (auto) 0.01 L Absolute Nucleated RBC 0.00 Immature Gran % 0.5 Immature Gran # 0.02 Assessment & Plan Assessment: Diverticulitis (Acute) - sigmoid colon. Patient reports that she was just recently completed ciprofloxacin and Flagyl. Antibiotic course has changed to include IV Unasyn with anticipate patient will go home on Augmentin. Given her recurrent episodes of diverticulitis will consult GI in the morning as per the day team. Rectal bleeding (Acute) for likely related to acute diverticulitis continue monitor HH. GI consult as noted above not currently a candidate for colonoscopy in setting of acute diverticulitis but patient notes she was previously recommended to get this done as outpatient. Diarrhea (Acute) - patient reports diarrhea has been ongoing since her initiate meneses of off Ofev immuno modulator. Prior to today she denies any history of rectal bleeding. Chronic anemia - H&H is currently stable. Vitals are stable. Will check CBC in the a.m.. Type and screen obtained with a.m. Labs. Dm 2 - diet controlled DM 2. Diet as tolerated GERD - continue PPI per formulary Benign essential hypertension - blood pressure was initially quite elevated upon arrival to the emergency department but suspect this is likely secondary to patient's acute pain. Blood pressures have since improved and although slightly elevated are acceptable for home patient's age. Patient is asymptomatic. Hydralazine will be made available p.r.n. For blood pressure systolic greater than 180 and diastolic greater than 100.
[2017-06-15] MEDS ORDERED: hydrALAZINE 20 MG/ML VIAL IVP PRN (08:13)
[2017-06-15] MEDS: ERTAPENEM 1 GM VIAL IV SCH (11:33)
[2017-06-15] MEDS: CYANO/VITAMIN B12 1000 MCG TAB PO SCH (11:34)
[2017-06-15] MEDS: LEVOTHYROXINE 50 MCG TAB PO SCH (11:36)
[2017-06-15 11:56] LABS: PLATELET COUNT 100 10^3/uL (150-400)
[2017-06-15] MEDS ORDERED: RANITIDINE SYRUP 15 MG/1 ML UDSYR PO SCH (13:15)
[2017-06-15] MEDS: FAMOTIDINE 20 MG TAB PO SCH (14:47)
--- NOTE | 2017-06-15 14:48 | HOSPPROG ---
Hospitalist Progress Note Assessment/Plan: #Diverticulitis (Acute) - sigmoid colon. Given unasyn in ER x 1, changed to ertapenem today. Checking serial hgb, spoke with Dr Tiffanie espinoza pt care/consut. Appreciate his assistance. #Rectal bleeding (Acute)- see above #Diarrhea (Acute) - consider c diff testing if ongoing given recent abx use ( none today so far) #Chronic anemia - see above, serial HGB, check Fe in am #Thrombocytopenia- has been noted prev, check in AM #Diet controlled DM 2 #GERD - PPI given in ER, change to H2 marycruz (home med) #Benign essential hypertension - hold ARB for now, restart in AM if BPs rise #Hypothyroid- check TSH (last 2015 in [facility]) PCP Dr Franklin VTE prophy- ambulation, SCDs, contraindication for Rx with current bleeding Dispo- change to inpt given ongoing GI bleeding, need for GI eval and possible surgery eval if bleeding persisting COR - need to verify with her, no copy of adv dir on electronic chart Subjective: Had several episodes of bloody stool overnt, none yet today. Not much appetite but had jello and eggs this AM. No pain currently. Denies SOB/LH. PCP in [place] had arranged colonoscopy but she 'chickened out', but has set up care with Dr Skinner recently. Objective: Vital Signs Temp Pulse Resp BP Pulse Ox 97.8 F 71 14 142/65 H 91 L 06/15/17 11:18 06/15/17 11:18 06/15/17 11:18 06/15/17 11:18 06/15/17 11:18 Laboratory Results 06/15/17 11:41 06/15/17 04:32 06/14/17 06/15/17 06/16/17 11:59 11:59 11:59 Intake Total 1518 Balance 1518 PT 16.7 SEC (12.0-15.0) H 06/14/17 21:09 INR 1.33 (0.83-1.16) H 06/14/17 21:09 - Time Spent With Patient Time Spent with Patient: greater than 35 minutes Time Spent with Patient: Greater than 35 minutes spent on this patients care, greater than 50% of time spent counseling, educating, and coordinating care regarding the above mentioned plan. - Physical Exam Constitutional: no apparent distress, appears nourished, not in pain Eyes: anicteric sclera Ears, Nose, Mouth, Throat: moist mucous membranes, hearing normal Cardiovascular: regular rate and rhythym, No edema Respiratory: no respiratory distress, no rales or rhonchi, clear to auscultation Gastrointestinal: normoactive bowel sounds, tenderness (mild LLQ), No guarding, No rebound, No distension Skin: warm Neurologic: other (grossly intact/non focal) Psychiatric: interacting appropriately, not anxious, not encephalopathic, thought process linear ICD10 Worksheet Patient Problems: Problems Problem Status Onset Acute diverticulitis Acute Diverticulitis Acute Rectal bleeding Acute Diarrhea Acute
--- NOTE | 2017-06-15 14:57 | ASMTCMCOM ---
CM Note CM Note Notes: Pt has been admitted with diverticulitis. Hx DM2, GERD, HTN. Her and son are present. She is currently on IV Invanz. CM will follow for any d/c needs. Date Signed: 06/15/2017 02:57 PM Electronically Signed By:DORIS Byrd
[2017-06-15 15:38] VITALS: RESP 16
--- NOTE | 2017-06-15 18:42 | GCON ---
[f rep st] CONSULTATION CHIEF COMPLAINT: Diverticulitis. HISTORY OF PRESENT ILLNESS: I have been asked to see this very pleasant 87-year -old woman in consultation by Dr. Link for evaluation of diverticulitis and abdominal pain. This very pleasant 87-year-old woman has a past medical history of recurrent diverticulitis, diabetes mellitus type 2 which is diet controlled, gastroesophageal reflux disease, and a remote history of tuberculosis. She also has a history of thyroid nodule and hypertension. She presented to the emergency department with complaints of increasing pain in the left lower quadrant. The patient has had experienced 2 episodes of bloody diarrhea prior to admission. Her first bowel movement was mixed with stool, the second was jan blood. The patient has had some pain radiation to her back as well as left lower quadrant pain. She has had some associated mild nausea without vomiting. She had been recently seen by her primary care physician and was started on Cipro and Flagyl. She did feel somewhat better after starting antibiotics, but after discontinuing antibiotics, she began to feel worse with worsening abdominal pain. The patient did have a recent CT scan of her left upper abdomen that did show some residual sigmoid diverticulitis. There was no evidence of abscess or perforation. She has been seen by Dr. Demarco recently on June 05 to establish care with a blind escort. She has apparently had a previous right hemicolectomy for appendicitis. She does split her time between [place] and [place]. She has been seen by a blind escort in [place]. Laboratory data did reveal hemoglobin 11.5 with hematocrit 33.7. PT was 16.7 with an INR of 1.33. White count was not elevated, was normal at 5.42. It is unclear when patient had her last colonoscopy. I have been asked to see this patient for further evaluation. PAST MEDICAL HISTORY: Diverticulitis, diabetes mellitus type 2 diet controlled , GERD, history of TB, history of thyroid nodule, and hypertension. SURGICAL HISTORY: Remarkable for cholecystectomy, appendectomy, and partial right hemicolectomy for appendicitis. FAMILY HISTORY: Remarkable for coronary disease with dementia. Otherwise negative as it pertains to chief complaint. SOCIAL HISTORY: Nonsmoker, does not drink alcohol. She is , lives with her . Spends part of the year in [place] and the other part in [facility]. ALLERGIES: Aspirin, Cipro, sulfa. MEDICATIONS: Avapro, Synthroid, ranitidine, and vitamin B12. REVIEW OF SYSTEMS: Negative 10 systems other than mentioned HPI. PHYSICAL EXAM: VITAL SIGNS: 142/65, pulse 71, respiratory rate 14, 91% sat on room air, 36.6. GENERAL: A very pleasant woman in no acute distress. HEENT: Normocephalic, atraumatic. EOMI. Neck is supple. No thyromegaly. Mucous membranes moist. LUNGS: Clear. CARDIAC: Normal S1, S2 without murmur. ABDOMEN: Soft. Mild tenderness to palpation. EXTREMITIES: Without clubbing, cyanosis, edema. NEURO: Nonfocal. SKIN: Warm and dry. PSYCH: Alert and oriented x3 with normal affect. LABORATORY DATA: As above. IMPRESSION: An 87-year-old woman with a history of diverticulitis, sigmoid colon, recurrent episodes, requiring IV antibiotics. Patient with reported rectal bleeding associated with diverticulitis. Would follow H and H serially. RECOMMENDATIONS: Admit to the hospital. IV hydration, analgesia, low-fiber diet. Continue on antibiotic, Unasyn. Will follow clinically. If improves, can switch to p.o. antibiotic Augmentin. If no significant improvement, may need to request surgical consult. Will follow with you. /[id number]/MODL [id number]
[2017-06-16] MEDS: LEVOTHYROXINE 50 MCG TAB PO SCH (04:08)
[2017-06-16] MEDS: ERTAPENEM 1 GM VIAL IV SCH (08:23)
[2017-06-16] MEDS: CYANO/VITAMIN B12 1000 MCG TAB PO SCH (08:24)
[2017-06-16] MEDS: FAMOTIDINE 20 MG TAB PO SCH (08:24)
[2017-06-16] MEDS ORDERED: IRBESARTAN 75 MG TAB PO SCH (09:00)
--- NOTE | 2017-06-16 09:20 | PDMN ---
Medical Necessity Medical necessity: change to IP; los>2mn for diverticulitis requiring abx change , and continued rectal bleeding/ bloody stools overnight; requires IV abx.,GI eval and possible surgery eval if bleeding perisists; comorbid chronic anemia, DM, thrombocytopenia, GERD, HTN; per order and progress note 06/15/17
[2017-06-16 15:19] VITALS: BP 142/72; PULSE 64; TEMP 98.3; O2SAT 92
--- NOTE | 2017-06-16 16:36 | ASDISCHSUM ---
Discharge Information Plan Status:Home with No Needs Medically Cleared to Leave: Discharge Date: CM D/C Disposition:Home, Routine, Self-Care ADT D/C Disposition:Home, Routine, Self-Care Projected Discharge Date: Transportation at D/C:Family Discharge Delay Reason: Follow-Up Date: Discharge Slot: Final Diagnosis: Placement Information Patient Contact Information Contact Name:YANDEL Relationship: Address:[address] [place] [address] Work Phone: City:[facility] Phone: [facility]/Zip Code:[place] [address] Email: Financial Information Financial Class:Medicare Primary Plan Desc:MEDICARE INPATIENT Primary Plan Number:[id number] Secondary Plan Desc:[facility] Secondary Plan Number:[id number] Assessment Information [facility] CM Progress Note CM Note CM Note Notes: Pt has been admitted with diverticulitis. Hx DM2, GERD, HTN. Her and son are present. She is currently on IV Invanz. CM will follow for any d/c needs. Date Signed: 06/15/2017 02:57 PM Electronically Signed By:DORIS Byrd [facility] CM Progress Note CM Note CM Note Notes: Dc order received. Spoke with RN; anticipate dc home with support of family. CM available if needs/changes. Date Signed: 06/16/2017 04:34 PM Electronically Signed By:Raquel Rowell RN Intervention Information Intervention Type:*BROWNE-Signed Date of Service:06/15/2017 09:56 AM Patient Type:Observation Staff Member:Noreen Hinton Hours: Discipline: Severity: Comment:
--- NOTE | 2017-06-18 12:50 | GDS ---
[f rep st] DISCHARGE SUMMARY SERVICE[facility] CONSULT: Gastroenterology. PROCEDURES: None. HISTORY AND PHYSICAL: Please see previously dictated note by Dr. Agarwal. ADMISSION DIAGNOSES: Diverticulitis, acute rectal bleeding, chronic anemia, type 2 diabetes, hyperte nsion, GERD. DISCHARGE DIAGNOSES: Diverticulitis, acute rectal bleeding, chronic anemia, type 2 diabetes, hyperte nsion, GERD, thrombocytopenia, and hypothyroidism. HOSPITAL COURSE: The patient is a very pleasant elderly female who came into the emergency [facility] because of ongoing abdominal pain and rectal bleeding. She had been diagnosed earlier by her [facility] provider with acute diverticulitis and was given outpatient oral medications. However, when her symptoms continued, she presented to the emergency department. She was given a dose of Invanz in the emergency department and was admitted for further supportive care, IV therapy, gastroenterology consultation. Dr. Moreno consulted on the patient and agreed with ongoing IV antibiotics and follow ing her hematocrit. She was started on ertapenem and on the day of discharge had received 2 doses of ertapenem (in addition to the 1 dose of Invanz that was given in the ER). Clinically, she felt very well and had gradually improving abdominal pain throughout her stay. She was still having some epis odes of rectal bleeding, but it was decreasing in amount and frequency. Dr. Moreno did not recommen d any colonoscopy or imaging at this time. She had already established with Dr. Demarco as an outp atient and had recently had a CT scan that did not indicate any masses. He recommended that she foll ow up with Dr. Demarco as an outpatient. She had a gastrointestinal PCR tract that showed no organ isms. She remained afebrile throughout her stay. Initial H and H were 12.4 and 36.4, with a platele t count of 116. At discharge, it was 11.2 and 32.6, with a platelet count of 99. Long discussion wa s had with her, her son, and her on the day of discharge regarding foods, diets, and their ge neral questions. Everyone felt comfortable with discharge at this time. Of note, she is hypothyroid, and TSH was done that was elevated at 9.8. She was given an increased d ose of thyroid replacement throughout her stay. She declined home health care services and will be sent home to follow up with her primary care joy jarrett Dr. Giovani Franklin, within a few days of discharge and with her on call, Dr. Erika bronson, within a week or 2 of discharge. DISCHARGE MEDICATION: Augmentin 875/125 twice a day, to start tomorrow; Tylenol as needed; Synthroid 75 mcg (increased from 50 mcg, and will need a followup TSH in 6 weeks at her primary care provider' s office); ranitidine 150 mg daily; B12 daily; Avapro 75 mg daily. DISCHARGE INSTRUCTIONS: Follow up as above. She is instructed to have a very bland diet but to grad ually increase with foods that she can tolerate. She has a long experience with diverticulitis and i s also status post hemicolectomy many years ago, so she is very aware of what food she can and cannot tolerate. /[id number]/MODL
== END 2017-06-16 17:00 | disposition home or self-care (01) | DRG 379 ==
LOC: F1N 06-15 00:12 → OBSVTOIN 06-15 14:47
PROVIDERS: ADMIT Family Medicine; ATTEND Family Medicine
DX: K57.93 Diverticulitis of intestine, part unspecified, without perforation or abscess with bleeding (principal); I10 Essential (primary) hypertension; E03.9 Hypothyroidism, unspecified; E11.9 Type 2 diabetes mellitus without complications; K21.9 Gastro-esophageal reflux disease without esophagitis; D53.9 Nutritional anemia, unspecified; D69.6 Thrombocytopenia, unspecified; Z86.11 Personal history of tuberculosis
CPT/HCPCS: G0378; J0295; J1335

== ENCOUNTER → 2017-06-26 | Outpatient (CLI) | payer OTHER | LOC: FIMAGING 14:29 | PROVIDERS: ATTEND Physician Assistant | DX: K57.32 Diverticulitis of large intestine without perforation or abscess without bleeding (principal) | CPT/HCPCS: 74177; Q9967 ==

== ENCOUNTER → 2017-07-03 | Outpatient (CLI) | payer OTHER | LOC: FIMAGING 12:33 | PROVIDERS: ATTEND Internal Medicine | DX: E04.1 Nontoxic single thyroid nodule (principal) ==

== ENCOUNTER → 2018-04-08 | Outpatient (CLI) | payer OTHER | LOC: BMCIMAGING 13:25 | PROVIDERS: ATTEND Internal Medicine | DX: J90 Pleural effusion, not elsewhere classified (principal); J98.11 Atelectasis ==

== ENCOUNTER → 2018-04-16 | Outpatient (CLI) | payer OTHER | LOC: FIMAGING 12:36 | PROVIDERS: ATTEND Internal Medicine Hematology & Oncology | DX: C90.00 Multiple myeloma not having achieved remission (principal) ==

== ENCOUNTER 2018-05-17 13:55 | Observation (INO) | payer OTHER ==
--- NOTE | 2018-05-17 14:30 | EDPHY ---
H & P Stated Complaint: Feels like she can't breathe, weakness Time Seen by Provider: 05/17/18 14:30 - Personal History Current Tetanus/Diphtheria Vaccine: Yes Current Tetanus Diphtheria and Acellular Pertussis (TDAP): Yes - Medical/Surgical History Hx Asthma: No Hx Chronic Respiratory Disease: No Hx Diabetes: No Hx Cardiac Disease: No Hx Renal Disease: No Hx Cirrhosis: No Hx Alcoholism: No Hx HIV/AIDS: No Hx Splenectomy or Spleen Trauma: No Other PMH: HTN, hyperthyroid, GERD, surinder, SBO, appy, Diverticulitis - Social History Smoking Status: Never smoked Constitutional: Initial Vital Signs Temperature (C) 36.8 C 05/17/18 13:57 Heart Rate 137 H 05/17/18 13:57 Respiratory Rate 16 05/17/18 13:57 Blood Pressure 128/75 H 05/17/18 13:57 O2 Sat (%) 95 05/17/18 13:57 O2 Delivery Mode Room Air Allergies/Adverse Reactions: aspirin Allergy (Verified 06/15/17 08:40) bleeding ciprofloxacin Allergy (Verified 06/15/17 08:40) Vomiting Sulfa (Sulfonamide Antibiotics) Allergy (Verified 06/14/17 19:45) Home Medications: Medication Instructions Recorded Cyanocobalamin [Vitamin B12 (*)] 1,000 mcg PO DAILY #0 09/17/16 Irbesartan [Avapro] 75 mg PO DAILY 09/17/16 Ranitidine HCl [Zantac] 150 mg PO DAILY 09/17/16 Acetaminophen [Tylenol 325mg (*)] 650 mg PO Q4HRS PRN tab 06/16/17 Amoxicillin/Clavulanate Pot 875 mg PO BID #14 tab 06/16/17 [Augmentin 875 MG TAB (*)] Levothyroxine [Synthroid 75 mcg 75 mcg PO DAILY06 #30 tab 06/16/17 (*)] Medical Decision Making ED Course/Re-evaluation: CHIEF COMPLAINT: Shortness of breath HISTORY OF PRESENT ILLNESS: The patient is an 88 y/o female with a history of multiple myeloma, hypertension , and GERD complaining of shortness of breath and a rapid heart rate onset around 3-4 days ago. Around one week ago she started chemotherapy, taking Aspirin and steroids for the multiple myeloma. When she took the steroids on Thursday, 4 days ago, she became manic so she stopped taking the steroids. Around 3-4 days ago she started to feel more short of breath and had difficulty while moving around. While walking to get an ultrasound today she felt her "heart going like a horse inside". However, due to her history of GERD she "can' t tell if it's a gas attack or something else". Today she was at the hospital to have an ultrasound, but while walking she became significantly short of breath, which concerned her son. Due to the shortness of breath, she decided not to have the ultrasound and instead presented to the emergency department. She denies history of atrial fibrillation and had normal cardiac studies several years ago in [place] after she had a "fake heart attack". No fever, headache, abdominal pain, urinary or bowel complaints, numbness, paresthesias. She is followed by Dr. Fall, oncologist, and Dr. Gardiner, GI. REVIEW OF SYSTEMS: A comprehensive 10 system review of systems is otherwise negative aside from elements mentioned in the history of present illness and medical decision making. PHYSICAL EXAM: HR, BP, O2 Sat, RR. Temp noted General Appearance: Alert, well hydrated, appropriate, and non-toxic appearing. Head: Atraumatic without scalp tenderness or obvious injury Eyes: Pupils equal, round, reactive to light and accommodation, EOMI, no trauma , no injection. Ears: Clear bilaterally, no perforation, normal landmarks Nose: Atraumatic, no rhinorrhea, clear. Throat: There is no erythema or exudates, no lesions, normal tonsils, mucus membranes moist. Neck: Supple, 2+ carotid upstroke, nontender, no lymphadenopathy. Respiratory: No retractions, no distress, no wheezes, and no accessory muscle use. Lungs are clear to auscultation bilaterally. O2Sats of 95% on room air. Cardiovascular: Irregularly irregular heart rate, no murmurs, rubs, or gallops. Bilateral carotid, radial, dorsalis pedis, and posterior tibial pulses intact. Good capillary refill all extremities. Gastrointestinal: Abdomen is soft, nontender, non-distended, no masses, no rebound, no guarding, no peritoneal signs. Musculoskeletal: Normal active ROM of all extremities, atraumatic. Neurological: Alert, appropriate, and interactive. The patient has normal DTRs and non-focal cranial nerves, motor, sensory, and cerebellar exam. Skin: No rashes, good turgor, no nodules on palpation. Past medical history: Hypertension, hyperthyroid, GERD, diverticulitis Past surgical history: Cholecystectomy, SBO, appendectomy Family history: Denies Social history: Son at bedside, lives in [place], retired DIAGNOSTICS/PROCEDURES/CRITICAL CARE TIME: EKG: The 12 lead EKG was interpreted by myself as atrial fibrillation with rabid v-rate of 157, LVH with secondary repolarization abnormality, ST depression most likely due to rate. See hard copy and/or "tracemaster" electronic copy for interpretation. DIFFERENTIAL DIAGNOSIS: The differential diagnosis for the patient's rapid heart rate included but was not limited to various causes of sinus tachycardia such as dehydration and medicines, SVT, atrial flutter, atrial fibrillation, pulmonary causes. The differential diagnosis for the patient's shortness of breath included but was not limited to pneumonia, myocardial infarction, acute mountain sickness, high altitude pulmonary edema, congestive heart failure, and pulmonary embolus. MEDICAL DECISION MAKING: The patient is an 88 y/o female with a history of multiple myeloma, hypertension , and GERD presenting with shortness of breath and a rapid heart rate onset around 3-4 days ago. She started taking oral chemotherapy drugs around 1 week ago and has since felt poorly. The symptoms exacerbated around 3-4 days ago but the patient cannot tell me the extent of her symptoms besides that she felt short of breath while moving. On exam she has an irregularly irregular heart rate. Her breathing seems okay with O2Sats of 95% on room air. The onset of her atrial fibrillation is unknown, but it could easily have occurred at least 3 days ago as that is when her exertional dyspnea became more present. She is not a cardioversion candidate due to the unknown onset. She is also at risk of a PE due to multiple myeloma, so I will also rule out a PE. EKG and labs ordered; 60m SC Lovenox, and 20mg IV Diltiazem with a dilt drip administered. I have discussed the probability of being admitted to the hospital for new onset a-fib , which the patient and her son are comfortable with. 1418: I reviewed patient's EKG as trial fibrillation with rabid v-rate of 157 1442: I consulted with Dr. Okeefe, auto engine mechanic regarding this patient. He agrees to consult on this patient during her admission. 1448: I consulted with the hospitalist service, Dr. Chen accepts admission of this patient. 1501: I consulted with Dr. Doran, oncologist, regarding this patient. He agrees to consult on this patient during her admission. 1547: Patient's d-dimer is slightly elevated but this is most likely age- related. She is safe to be transported to the floor now. - Data Points Laboratory Results: Laboratory Results 05/17/18 14:20 05/17/18 14:20 05/17/18 05/17/18 05/17/18 14:46 14:20 14:20 WBC RBC Hgb Hct MCV MCH MCHC RDW Plt Count MPV Neut % (Auto) Lymph % (Auto) [place] % (Auto) Eos % (Auto) Baso % (Auto) Nucleat RBC Rel Count Absolute Neuts (auto) Absolute Lymphs (auto) Absolute Monos (auto) Absolute Eos (auto) Absolute Basos (auto) Absolute Nucleated RBC Immature Gran % Immature Gran # PT 15.9 SEC H SEC (12.0-15.0) INR 1.25 H (0.83-1.16) APTT 29.2 SEC SEC (23.0-38.0) D-Dimer 0.58 ug/mLFEU H ug/mLFEU (0.00-0.50) Sodium 134 mEq/L L mEq/L (135-145) Potassium 4.1 mEq/L mEq/L (3.5-5.2) Chloride 103 mEq/L mEq/L (97-110) Carbon Dioxide 21 mEq/l L mEq/l (22-31) Anion Gap 10 mEq/L mEq/L (6-14) BUN 15 mg/dL mg/dL (7-23) Creatinine 0.8 mg/dL mg/dL (0.6-1.0) Estimated GFR > 60 Glucose 117 mg/dL H mg/dL (70-100) Calcium 8.4 mg/dL L mg/dL (8.5-10.4) Magnesium 2.0 mg/dL mg/dL (1.6-2.3) POC Troponin I 0.01 ng/mL ng/mL (0.00-0.08) NT-Pro-B Natriuret Pep 841 pg/mL H pg/mL (0-450) Specimen Hemolysis 127 05/17/18 14:20 WBC 5.32 10^3/uL 10^3/uL (3.80-9.50) RBC 3.37 10^6/uL L 10^6/uL (4.18-5.33) Hgb 10.5 g/dL L g/dL (12.6-16.3) Hct 30.7 % L % (38.0-47.0) MCV 91.1 fL fL (81.5-99.8) MCH 31.2 pg pg (27.9-34.1) MCHC 34.2 g/dL g/dL (32.4-36.7) RDW 14.6 % % (11.5-15.2) Plt Count 116 10^3/uL L 10^3/uL (150-400) MPV 12.9 fL H fL (8.7-11.7) Neut % (Auto) 35.2 % L % (39.3-74.2) Lymph % (Auto) 39.8 % % (15.0-45.0) [place] % (Auto) 24.2 % H % (4.5-13.0) Eos % (Auto) 0.2 % L % (0.6-7.6) Baso % (Auto) 0.2 % L % (0.3-1.7) Nucleat RBC Rel Count 0.0 % % (0.0-0.2) Absolute Neuts (auto) 1.87 10^3/uL 10^3/uL (1.70-6.50) Absolute Lymphs (auto) 2.12 10^3/uL 10^3/uL (1.00-3.00) Absolute Monos (auto) 1.29 10^3/uL H 10^3/uL (0.30-0.80) Absolute Eos (auto) 0.01 10^3/uL L 10^3/uL (0.03-0.40) Absolute Basos (auto) 0.01 10^3/uL L 10^3/uL (0.02-0.10) Absolute Nucleated RBC 0.00 10^3/uL 10^3/uL (0-0.01) Immature Gran % 0.4 % % (0.0-1.1) Immature Gran # 0.02 10^3/uL 10^3/uL (0.00-0.10) PT INR APTT D-Dimer Sodium Potassium Chloride Carbon Dioxide Anion Gap BUN Creatinine Estimated GFR Glucose Calcium Magnesium POC Troponin I NT-Pro-B Natriuret Pep Specimen Hemolysis Medications Given: Discontinued Medications Diltiazem HCl (Cardizem 25 Mg/5 Ml Vial) 20 mg IVP EDNOW ONE Stop: 05/17/18 14:41 Last Admin: 05/17/18 15:02 Dose: 20 mg Enoxaparin Sodium (Lovenox) 60 mg SC EDNOW ONE Stop: 05/17/18 14:45 Last Admin: 05/17/18 15:55 Dose: 60 mg Diltiazem HCl 125 mg/ Dextrose 125 mls @ 0 mls/hr IV EDNOW ONE; As Directed PRN Reason: Protocol Stop: 05/17/18 14:41 Last Admin: 05/17/18 15:04 Dose: 125 mls Point of Care Test Results: Chemistry 05/17/18 14:46 POC Troponin I 0.01 ng/mL ng/mL (0.00-0.08) Departure - Departure Disposition: [facility] Inpatient Acute Clinical Impression: New onset atrial fibrillation, Exertional dyspnea Condition: Fair Referrals: Jaylan Franklin MD [Primary Care Provider] - As per Instructions Report Scribed for: Jesse Pascual Report Scribed by: Rosio Bradley Date of Report: 05/17/18 Time of Report: 16:01
[2018-05-17] MEDS ORDERED: DILTIAZEM 25 MG/5 ML VIAL IVP ONE (14:40)
[2018-05-17] MEDS ORDERED: DILTIAZEM 125 MG in D5W 125 ML IV ONE (14:40)
[2018-05-17] MEDS ORDERED: ENOXAPARIN 60 MG/0.6 ML SYR SC ONE (14:44)
[2018-05-17 15:13] LABS: INR 1.25 (0.83-1.16); PROTIME(PATIENT) 15.9 SEC (12.0-15.0)
[2018-05-17 15:14] LABS: PLATELET COUNT 116 10^3/uL (150-400)
[2018-05-17] MEDS ORDERED: ACETAMINOPHEN 325 MG TAB PO PRN ×2 (15:22→17:08)
[2018-05-17] MEDS ORDERED: DILTIAZEM 125 MG in D5W 125 ML IV SCH (15:30)
--- NOTE | 2018-05-17 15:54 | PDCARCONS ---
Cardiology Consult Reason for Consult: Atrial fibrillation. Chief Complaint: Fatigue, palpitations. Requesting Physician: Dr. Jesse Pascual. History of Present Illness: She has no cardiovascular disease history. Apparently, she was diagnosed with multiple myeloma in late March. She is followed by Dr. And door cheung as an outpatient. She has just started chemotherapy and is currently on her 2nd week of chemotherapy. She has had fairly chronic symptoms of fatigue dating back to the time of her diagnosis with multiple myeloma. Prior to that she really had no difficulties. She was seen by her PCP Dr. Fall on May 14. At that time, she had low-grade fevers and it was thought that she had an upper respiratory infection. Because of her history of myeloma she was placed on Augmentin. Over the weekend she has not done well. She has had progressive symptoms of fatigue. This has been associated with symptoms of exertional dyspnea and complete exhaustion. Additionally, earlier today, she had symptoms of palpitations described as a very rapid heart rate. She had no anginal quality chest discomfort. She denies orthopnea, PND and edema. She has not had any dizziness or lightheadedness. As result, she came to the emergency department today. She was found to be in atrial fibrillation with a rapid ventricular response with a resting heart rate of about 170 beats per minute. She has no history of arrhythmia. She has no history of stroke. Her chads Vasc score is 4. History Information - Allergies/Home Medication List Allergies/Adverse Reactions: aspirin Allergy (Verified 06/15/17 08:40) bleeding ciprofloxacin Allergy (Verified 06/15/17 08:40) Vomiting Sulfa (Sulfonamide Antibiotics) Allergy (Verified 06/14/17 19:45) Home Medications: Cyanocobalamin [Vitamin B12 (*)] 1,000 mcg PO DAILY #0 09/17/16 [Last Taken 02/21] Irbesartan [Avapro] 75 mg PO DAILY 09/17/16 [Last Taken 06/14/17] Ranitidine HCl [Zantac] 150 mg PO DAILY 09/17/16 [Last Taken 06/14/17] I have personally reviewed and updated: family history, medical history, social history, surgical history Past Medical History: - Past Medical History Additional medical history: Multiple myeloma, thyroid nodule, hypothyroidism, history of pleural effusion, GERD, diverticulitis, glucose intolerance, hypertension. - Surgical History Reports: no pertinent surgical hx - Family History Positive for: non-pertinent - Social History Smoking Status: Never smoked Alcohol Use: None Drug Use: None Age in Years: 75 or older Sex: Female Congestive Heart Failure History: No Hypertension History: Yes Stroke/TIA/Thromboembolism History: No Vascular Disease History: No Diabetes Mellitus: No [id number] Score: 4 Physical Exam Physical Exam: Temp Pulse Resp BP Pulse Ox 36.8 C 116 H 16 139/77 H 92 05/17/18 13:57 05/17/18 15:30 05/17/18 15:30 05/17/18 15:30 05/17/18 15:30 Constitutional: no apparent distress, appears nourished, not in pain Eyes: PERRL, anicteric sclera, EOMI Ears, Nose, Mouth, Throat: moist mucous membranes, hearing normal, ears appear normal, no oral mucosal ulcers Cardiovascular: no murmur, rub, or gallop, irregularly irregular, tachycardia, No edema Respiratory: no respiratory distress, no rales or rhonchi, clear to auscultation Gastrointestinal: normoactive bowel sounds, soft, non-tender abdomen, no palpable masses Genitourinary: no bladder fullness, no bladder tenderness Skin: warm, normal color, no rashes or abrasions, no fluctuance, no induration, No mottled Musculoskeletal: full muscle strength, no muscle tenderness, normal joint ROM, no joint effusions Psychiatric: interacting appropriately, not anxious, not encephalopathic, thought process linear Lymph, Heme, Immunologic: no cervical LAD, no supraclavicular LAD Lab and Imaging 05/17/18 14:20 05/17/18 14:20 WBC 5.32 10^3/uL (3.80-9.50) 05/17/18 14:20 RBC 3.37 10^6/uL (4.18-5.33) L 05/17/18 14:20 Hgb 10.5 g/dL (12.6-16.3) L 05/17/18 14:20 Hct 30.7 % (38.0-47.0) L 05/17/18 14:20 MCV 91.1 fL (81.5-99.8) 05/17/18 14:20 MCH 31.2 pg (27.9-34.1) 05/17/18 14:20 MCHC 34.2 g/dL (32.4-36.7) 05/17/18 14:20 RDW 14.6 % (11.5-15.2) 05/17/18 14:20 Plt Count 116 10^3/uL (150-400) L 05/17/18 14:20 MPV 12.9 fL (8.7-11.7) H 05/17/18 14:20 Neut % (Auto) 35.2 % (39.3-74.2) L 05/17/18 14:20 Lymph % (Auto) 39.8 % (15.0-45.0) 05/17/18 14:20 [place] % (Auto) 24.2 % (4.5-13.0) H 05/17/18 14:20 Eos % (Auto) 0.2 % (0.6-7.6) L 05/17/18 14:20 Baso % (Auto) 0.2 % (0.3-1.7) L 05/17/18 14:20 Nucleat RBC Rel Count 0.0 % (0.0-0.2) 05/17/18 14:20 Absolute Neuts (auto) 1.87 10^3/uL (1.70-6.50) 05/17/18 14:20 Absolute Lymphs (auto) 2.12 10^3/uL (1.00-3.00) 05/17/18 14:20 Absolute Monos (auto) 1.29 10^3/uL (0.30-0.80) H 05/17/18 14:20 Absolute Eos (auto) 0.01 10^3/uL (0.03-0.40) L 05/17/18 14:20 Absolute Basos (auto) 0.01 10^3/uL (0.02-0.10) L 05/17/18 14:20 Absolute Nucleated RBC 0.00 10^3/uL (0-0.01) 05/17/18 14:20 Immature Gran % 0.4 % (0.0-1.1) 05/17/18 14:20 Immature Gran # 0.02 10^3/uL (0.00-0.10) 05/17/18 14:20 PT 15.9 SEC (12.0-15.0) H 05/17/18 14:20 INR 1.25 (0.83-1.16) H 05/17/18 14:20 APTT 29.2 SEC (23.0-38.0) 05/17/18 14:20 D-Dimer 0.58 ug/mLFEU (0.00-0.50) H 05/17/18 14:20 Sodium 134 mEq/L (135-145) L 05/17/18 14:20 Potassium 4.1 mEq/L (3.5-5.2) 05/17/18 14:20 Chloride 103 mEq/L (97-110) 05/17/18 14:20 Carbon Dioxide 21 mEq/l (22-31) L 05/17/18 14:20 Anion Gap 10 mEq/L (6-14) 05/17/18 14:20 BUN 15 mg/dL (7-23) 05/17/18 14:20 Creatinine 0.8 mg/dL (0.6-1.0) 05/17/18 14:20 Estimated GFR > 60 05/17/18 14:20 Glucose 117 mg/dL (70-100) H 05/17/18 14:20 Calcium 8.4 mg/dL (8.5-10.4) L 05/17/18 14:20 Magnesium 2.0 mg/dL (1.6-2.3) 05/17/18 14:20 POC Troponin I 0.01 ng/mL (0.00-0.08) 05/17/18 14:46 NT-Pro-B Natriuret Pep 841 pg/mL (0-450) H 05/17/18 14:20 Specimen Hemolysis 127 05/17/18 14:20 Visualized and Interpreted Chest x-ray results: No Visualized and Interpreted imaging results: No Visualized and Interpreted EKG results: Yes EKG additional interpertation: Atrial fibrillation with a rapid ventricular response. Left ventricular hypertrophy with strain. Echocardiogram: Pending. A/P Assessment: This is an 88-year-old female previously healthy diagnosed with multiple myeloma here in the recent past currently on her 2nd week of chemotherapy. She presents now with atrial fibrillation associated with a rapid ventricular response. She has symptoms of palpitations associated with effort intolerance and dyspnea. She is hemodynamically stable and does not appear to be in overt congestive heart failure. Her chads Vasc score is 4. As such, she is a candidate for systemic anticoagulation with no clear contraindications. At the present time, it is not clear whether not her multiple myeloma in the treatment for her myeloma is currently playing a role in this arrhythmia. 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 Plan: 1. She will be admitted to telemetry and monitored. 2. She has been started on a diltiazem drip and given a bolus of diltiazem for rate control. 3. She has been given a single dose of subcutaneous Lovenox 1 milligram/ kilogram. 4. I have ordered an echocardiogram as well as a TSH. 5. We will plan to transition her to oral medications overnight pending the results of her echocardiogram. 6. We may plan for a JACQUELIN and cardioversion in the morning depending on whether not she lapses back into sinus rhythm spontaneously. Review of Systems Review of Systems: - Review of Systems Constitutional: see HPI EENTM: no symptoms reported Respiratory: see HPI Cardiac: see HPI Gastrointestinal/Abdominal: no symptoms reported Genitourinary: no symptoms Musculoskelatal: no symptoms Skin: no symptoms Neurological: no symptoms Hematologic/Lymphatic: no symptoms reported Immunologic/allergic: no symptoms reported All Other Systems: Reviewed and Negative
--- NOTE | 2018-05-17 16:08 | ECHO ---
[email or web address] [address] [address] Main: [phone] Fax: [email or web address] Echocardiogram Name: YENNI DELACRUZ MR#: [id number] Study Date: 05/17/2018 Study Time: 03:25 PM Date of : 1930 Age: 88 year(s) Height: 167.6 cm (66 in.) Weight: 58.06 kg (128 lb.) BSA: 1.65 m2 Gender: Female Examination: Echo Indication: New onset A-fib Image Quality: Contrast: Requested by: John Okeefe BP: 151 mmHg/73 mmHg Heart Rate: Rhythm: Atrial fibrillation Indication: New onset A-fib Procedure Staff Mold Dresser: Apolinar Yeung RDCS Reading Physician: Young Holguin MD Requesting Provider: Conclusions: Global hypercontractility of the left ventricle. EF is 72 %. There is mild mitral valve annulus calcifcation.. Mild tricuspid regurgitation is present. Small pericardial effusion. No echocardiographic evidence of hemodynamic compromise. Measurements: Chambers Valvular Assessment AV/MV Valvular Assessment TV/PV Normal Normal Normal Name Value Range Name Value Range Name Value Range Ao Taisha (MM): 2.2 cm (2.2 cm-3.7 AV Vmax: 1.47 m/s (1 m/s-1.7 TR Vmax: 2.88 mm/s ( - ) cm) m/s) TR PGmax: 33 mmHg ( - ) IVSd (2D): 0.8 cm (0.6 cm-1.1 AV maxP mmHg ( - ) syst. PAP: 38 mmHg ( - ) cm) LVOT Vmax: 1.22 m/s (0.7 m/s-1.1 PV Vmax: 1.34 m/s (0.6 m/s-0.9 LVDd (2D): 4.6 cm (3.9 cm-5.3 m/s) m/s) cm) MV E Vmax: 0.84 m/s ( - ) PV PGmax: 7 mmHg ( - ) LVDs (2D): 2.7 cm (2.1 cm-4 cm) LVPWd (2D): 1.0 cm ( - ) LVEF (2D): 72 (>=54 %) Continued Measurements: Chambers Valvular Assessment TV/PV Name Value Name Value LADs: 3.4 cm CVP (est.): 5 mmHg LADs Lon.0 cm LA Area: 14.8 cm2 LA Volume: 35 ml Patient: YENNI DELACRUZ Study Date: 05/17/2018 Page 1 of 2 03:25 PM LA Volume Index: 21.2 ml/m2 Findings: Left Ventricle: Normal size left ventricle. No LV hypertrophy. Global hypercontractility of the left ventricle. EF is 72 %. No regional wall motion abnormality. Diastolic dysfunction is present. . Right Ventricle: Normal size right ventricle. Normal RV function. Left Atrium: The left atrium is normal in size. Right Atrium: The right atrium is borderline dilated. Mitral Valve: There is no significant mitral valve regurgitation. There is mild mitral valve annulus calcifcation.. Aortic Valve: The aortic valve is tri-leaflet. The aortic valve is normal in appearance and function. Tricuspid Valve: The tricuspid valve appears normal. Mild tricuspid regurgitation is present. The pulmonary artery pressure is normal. Pulmonic Valve: The pulmonic valve is normal in appearance and function. Aorta: The aorta is normal. Pericardium: Small pericardial effusion. No echocardiographic evidence of hemodynamic compromise. (No Signature Object) Patient: YENNI DELACRUZ Study Date: 05/17/2018 Page 2 of 2 03:25 PM [id number]
[2018-05-17] MEDS: DILTIAZEM CD 120 MG CAP PO SCH (17:49)
--- NOTE | 2018-05-17 18:03 | GHP ---
[f rep st] HISTORY AND PHYSICAL DATE OF ADMISSION: 05/17/2018 CHIEF COMPLAINT: Shortness of breath. HISTORY OF PRESENT ILLNESS: The patient is a pleasant 88-year-old female with a past medical history of hypertension and diabetes mellitus type 2, as well as a recent diagnosis of multiple myeloma who recently started treatment within the past month, who was at the [facility] today when she had noted progressive shortness of breath. She states her symptoms started 2 to 3 days ago and she has been noticing exertional shortness of breath during that period of time. Upon arrival to the emergency room, where she presented by herself after feeling short of breath, he r heart rate was noted to be tachycardic in the 130s and when she was placed on the monitor, she was found to be in atrial fibrillation, which was a new diagnosis for her. Cardiology was consulted in t emergency room and patient was started on a diltiazem drip and given a dose of Lovenox. PAST MEDICAL HISTORY: Hypertension, diabetes mellitus type 2 with a recent hemoglobin A1c of 6.1% in March of 2018, recurrent diverticulitis, recent diagnosis of multiple myeloma. PAST SURGICAL HISTORY: Cholecystectomy, appendectomy, partial right colectomy at the time of her kylee endectomy. MEDICATIONS: Home medication list includes acyclovir 400 mg twice a day, aspirin 81 mg daily, vitami n B12 at 1000 mcg 3 tablets daily, dexamethasone 20 mg weekly, irbesartan 75 mg daily, Revlimid 10 mg daily, levothyroxine 50 mcg daily, Zantac 150 mg daily. ALLERGIES: Aspirin, ciprofloxacin, sulfa drugs. FAMILY HISTORY: Mother is . She had a history of dementia and coronary artery disease. Fat her is also . He had a history of myocardial infarction. She also had a sister with a myoca rdial infarction. SOCIAL HISTORY: Patient is a nonsmoker. She lives part-time in [facility]. She has a son that l tenisha here in [place]. On prior hospitalization, she has been listed as a Do Not Attempt Resuscitatio n Code Status. REVIEW OF SYSTEMS: CONSTITUTIONAL: No reports of any fevers or chills. ENT: She did report having an upper respiratory illness, but states that the symptoms are improving. These included cough and congestion. CARDIOVASCULAR: No complaints of any palpitations or chest pressure. RESPIRATORY: Pos itive for exertional shortness of breath. No pleuritic-type chest pains. GI: No nausea or vomiting . : No reports of any difficulty with urination. NEUROLOGIC: No complaints of any headaches or focal weakness. HEMATOLOGIC: No history of any deep vein thrombosis or pulmonary embolism. PSYCHIA TRIC: No history of anxiety or depression. She does note feeling quite anxious and somewhat manic w hen taking steroids recently. ENDOCRINE: No history of polyuria or heat intolerance. SKIN: No new skin rashes. MUSCULOSKELETAL: No focal joint pains or swelling. PHYSICAL EXAM: VITAL SIGNS: Temperature 36.8, blood pressure 128/75, heart rate 135, respirations 1 6, saturating 95% on room air. GENERAL: Patient appeared comfortable. She is awake, alert, convers ant, able to provide a good history. HEENT: Extraocular movements intact. No scleral icterus is no carols. NECK: Supple. No thyroid enlargement is appreciated. CHEST: Clear on auscultation with norm al respiratory effort. No dullness to percussion. Good breath sounds throughout. HEART: Tachycard ic, irregular. No murmurs appreciated. ABDOMEN: Soft, nontender, nondistended. : No Thibodeaux cath eter in place. EXTREMITIES: No significant pitting edema appreciated. NEUROLOGIC: Cranial nerves 2-12 appear grossly intact with 5/5 strength in extremities. LABS: White blood cell count 5, hemoglobin 10, platelets 116. Sodium is 134, potassium 4.1, chlorid e 103, bicarb 21, BUN 15, creatinine 0.8, glucose of 117. D-dimer 0.58. INR 1.2. Troponin 0.01. B ROLFER 841. IMAGING: Echocardiogram: Global hypercontractility of left ventricle. Ejection fraction estimated at 72%. Mild tricuspid regurgitation. Small pericardial effusion. No hemodynamic compromise by ech o. ASSESSMENT/PLAN: 1. Atrial fibrillation with rapid ventricular response: Improved rate control with diltiazem drip. Patient has been anticoagulated with Lovenox. Cardiology has been consulted. An echocardiogram has been obtained. I have ordered a TSH with her morning labs. I also did discuss with her ER attendin g about performing CT angiography of the chest to ensure that the atrial fibrillation could not be a manifestation of pulmonary embolism in light of her multiple myeloma diagnosis in addition to the fac t that her current Revlimid used to treat the multiple myeloma is associated with small increased ris k of thrombotic disease. Now that her creatinine is back and within normal limits, we will proceed w ith CT imaging. Patient has been made n.p.o. and we will await further recommendations regarding the atrial fibrillation from Cardiology. 2. Anemia: This appears to be stable and somewhat chronic. Possibly related to her multiple myelom a. Reassess again in the morning considering anticoagulation. 3. Hypertension: Controlled. We will continue to hold her current angiotensin receptor marycruz. 4. Diabetes mellitus type 2: This diagnosis is taken from old records. She does not appear to be o n any current oral therapy. Her hemoglobin A1c was 6.1% in March of 2018. 5. Multiple myeloma: Oncology was consulted in the emergency room. I have placed her current medic al therapy on hold pending further investigation. 6. Deep venous thrombosis prophylaxis: Patient is anticoagulated with Lovenox. DISPOSITION: We will place her under observation status for now pending further investigation. /[id number]/MODL
[2018-05-17] MEDS: ACYCLOVIR 400 MG TAB PO SCH (21:53)
[2018-05-17] MEDS: ENOXAPARIN 60 MG/0.6 ML SYR SC SCH (21:53)
[2018-05-18 05:37] LABS: INR 1.34 (0.83-1.16); PROTIME(PATIENT) 16.8 SEC (12.0-15.0)
[2018-05-18] MEDS ORDERED: ATROPINE SULFATE 1 MG/10 ML SYR IVP ONE (06:00)
[2018-05-18] MEDS ORDERED: NS 1,000 ML IV ONE (06:00)
--- NOTE | 2018-05-18 07:55 | SOAPPROG ---
MERRITT Progress Note Assessment/Plan: Assessment: 1. Paroxysmal atrial fibrillation. This is associated with a chads Vasc score of 4 placing her at significant risk for stroke. Fortunately, she reverted back to sinus rhythm following rate control with diltiazem. Currently she feels well with resolution of her initial complaints of dyspnea and effort intolerance. Her echocardiogram was unremarkable overall and TSH was noted to be normal. 2. Multiple myeloma. 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 She was receiving treatment at the time of the development of atrial fibrillation. It is not clear whether those medications contributed to this arrhythmia. She has not had significant hematologic abnormalities that appear to preclude the safe use of systemic anticoagulation. 3. Hypertension. Blood pressures during this hospitalization appear to be reasonably well controlled. Plan: 1. We will plan to continue the use of diltiazem. 2. It may be that with the addition of diltiazem we can stop her ARB. 3. I would like to talk to the hematologists regarding the safety of initiation of a systemic anticoagulant such as apixaban. As long as it is thought to be safe we can begin 2.5 mg twice daily. 4. I think it is likely that she will be able to be discharged home today. I am happy to see her in follow-up in clinic. 05/18/18 07:55 Objective: Vital Signs Temp Pulse Resp BP Pulse Ox 36.6 C 67 15 130/67 H 94 05/18/18 07:26 05/18/18 07:26 05/18/18 07:26 05/18/18 07:26 05/18/18 07:26 Laboratory Results 05/18/18 04:05 05/17/18 05/18/18 05/19/18 05:59 05:59 05:59 Intake Total 59 Balance 59 PT 16.8 SEC (12.0-15.0) H 05/18/18 04:05 INR 1.34 (0.83-1.16) H 05/18/18 04:05 - Time Spent With Patient Time Spent With Patient: She appears to be doing well today. Previously noted symptoms of dyspnea and fatigue have resolved. She reverted back to sinus rhythm yesterday evening. In reviewing telemetry she converted to sinus rhythm without a significant pause. She has been in sinus rhythm with PACs and PVCs since. Her echocardiogram was benign. Physical Exam - Physical Exam General Appearance: WD/WN, no apparent distress Neck: non-tender, full range of motion Respiratory: lungs clear Cardiac/Chest: regular rate, rhythm, No edema, No gallop, No JVD Peripheral Pulses: 2+: carotid (R), carotid (L) Abdomen: non-tender, soft Pelvic Exam: deferred Rectal: deferred Neuro/Psych: alert, oriented x 3 ICD10 Worksheet Patient Problems: Problems Problem Status Onset Exertional dyspnea Acute New onset atrial fibrillation Acute Acute diverticulitis Acute Diarrhea Acute Diverticulitis Acute Rectal bleeding Acute
[2018-05-18] MEDS: ENOXAPARIN 60 MG/0.6 ML SYR SC SCH (08:07)
[2018-05-18] MEDS ORDERED: FAMOTIDINE 20 MG TAB PO SCH (09:00)
[2018-05-18] MEDS: DILTIAZEM CD 120 MG CAP PO SCH (09:09)
[2018-05-18] MEDS: ACYCLOVIR 400 MG TAB PO SCH (09:09)
[2018-05-18 12:26] VITALS: BP 109/57
--- NOTE | 2018-05-18 15:53 | CPEKG ---
Test Reason : OPEN Blood Pressure : / mmHG Vent. Rate : 069 BPM Atrial Rate : 073 BPM P-R Int : 145 ms QRS Dur : 090 ms QT Int : 412 ms P-R-T Axes : 047 074 266 degrees QTc Int : 442 ms Sinus rhythm LVH with secondary repolarization abnormality ST depr, consider ischemia, inferior leads Confirmed by Maciel Ashley ([id number]) on 05/18/2018 3:52:51 PM Referred By: Donal Chen Confirmed By:Maciel Ashley
--- NOTE | 2018-05-18 15:59 | ASDISCHSUM ---
Discharge Information Plan Status:Home with No Needs Medically Cleared to Leave:05/17/2018 Discharge Date:05/18/2018 03:31 PM CM D/C Disposition:Home, Routine, Self-Care ADT D/C Disposition:Home, Routine, Self-Care Projected Discharge Date:05/18/2018 03:31 PM Transportation at D/C:Family Discharge Delay Reason: Follow-Up Date:05/18/2018 03:31 PM Discharge Slot: Final Diagnosis:Afib, with Multiple myeloma Placement Information Patient Contact Information Contact Name:YANDEL Relationship: Address:[facility] [place] Work Phone: [facility]:[place] Alternate Phone: [facility]/Zip Code:[place] [address] Email: Financial Information Financial Class:Medicare Primary Plan Desc:MEDICARE OUTPATIENT Primary Plan Number:[id number] Secondary Plan Desc:[facility] Secondary Plan Number:[id number] Assessment Information LACE LACE Length of stay for Answers: 1 day current admission Acuity / Level of Answers: No Care: Did the patient have an inpatient admission? Comorbidities - select Answers: Any tumor (including all that apply lymphoma or leukemia) Peptic ulcer disease Other Notes: A fib # of Emergency department Answers: 1-2 visits in the last 6 months Score: 7 Date Signed: 05/18/2018 03:58 PM Electronically Signed By:Monica Osman Case Management Discharge Plan Note Case Management Discharge Discharge Order Complete? Answers: Yes Patient to Obtain Answers: via Family Medications Transportation Arranged Answers: Family/Friends Transport will Pick (Date 05/18/2018 12:00 AM & Time) Family Notified Answers: Yes Notes: by pt Discharge Comments Notes: Spoke with pt's RN. Pt admitted for new onset A fib in the setting of multiple myeloma. Pt lives in [place] with . Pt to discharge independently. No therapies ordered. No CM needs noted at this time. Date Signed: 05/18/2018 03:57 PM Electronically Signed By:Monica Osman Intervention Information Intervention Type:*BROWNE-Signed Date of Service:05/18/2018 10:35 AM Patient Type:Observation Staff Member:Noreen Hinton Hours: Discipline: Severity: Comment:
[2018-05-18] MEDS ORDERED: APIXABAN 2.5 MG TAB PO SCH (21:00)
--- NOTE | 2018-05-19 19:39 | CPEKG ---
Test Reason : OPEN Blood Pressure : / mmHG Vent. Rate : 157 BPM Atrial Rate : 144 BPM P-R Int : 108 ms QRS Dur : 079 ms QT Int : 301 ms P-R-T Axes : 000 080 -86 degrees QTc Int : 487 ms Atrial fibrillation with rapid V-rate LVH with secondary repolarization abnormality ST depression, probably rate related Confirmed by Julio Chaney ([id number]) on 05/19/2018 7:39:31 PM Referred By: PHYSICIAN ED Confirmed By:Julio Chaney
== END 2018-05-18 15:31 | disposition home or self-care (01) ==
LOC: F2W 16:21
PROVIDERS: ADMIT Internal Medicine; ATTEND Internal Medicine
DX: I48.0 Paroxysmal atrial fibrillation (principal); C90.00 Multiple myeloma not having achieved remission; I10 Essential (primary) hypertension; D64.9 Anemia, unspecified; K21.9 Gastro-esophageal reflux disease without esophagitis; E03.9 Hypothyroidism, unspecified; E11.9 Type 2 diabetes mellitus without complications; T38.0X5D Adverse effect of glucocorticoids and synthetic analogues, subsequent encounter; Z92.21 Personal history of antineoplastic chemotherapy; Z87.19 Personal history of other diseases of the digestive system; Z82.49 Family history of ischemic heart disease and other diseases of the circulatory system; Z88.6 Allergy status to analgesic agent; Z88.2 Allergy status to sulfonamides
CPT/HCPCS: 71046; 93005; 93306; 96372; 96374; 96375; 99285; G0378; J1650; 84484-ER

== ENCOUNTER 2018-06-21 08:52 | Inpatient (IN) | payer OTHER ==
[2018-06-21] MEDS ORDERED: NS 500 ML IV ONE (09:13)
[2018-06-21] MEDS ORDERED: IOPAMIDOL (ISOVUE-300) 100 ML BTL ONE (09:20)
--- NOTE | 2018-06-21 09:20 | EDPHY ---
General Time Seen by Provider: 06/21/18 08:54 Narrative: CLINICAL IMPRESSION: Colitis, Constipation, Diverticulosis ASSESSMENT/PLAN: 88-year-old female with a history of atrial fibrillation, hypertension, multiple myeloma, diabetes, and diverticulosis presents to the emergency department with generalized abdominal pain for the last 2 weeks worsened since yesterday. Patient reports inability to have bowel movement or pass flatus x2 weeks however was able to have several successful bowel movements in the ED. She arrives afebrile with stable vital signs and no signs of sepsis or severe dehydration. CT read by Radiology today showing impressive amounts of stool along with descending sigmoid colitis with possible underlying diverticulitis, left lower bowel with circumferential wall thickening. No perforation or abscess. No leukocytosis, renal insufficiency, or significant electrolyte imbalance. Patient required IV analgesics to maintain comfort. Given history of chronic underlying diverticulitis in severe constipation, patient will be admitted to the hospitalist service. Discussed with Gemini will admit patient to Dr. Rowell service. Patient stable at time of admission. DIFFERENTIAL DX: Abdominal pain includes but not limited to urinary tract infection, pyelonephritis, acute appendicitis, acute diverticulitis, small-bowel obstruction, severe constipation, toxic megacolon ED PROCEDURES: See lab and/or imaging results below ED COURSE: 9:00 a.m.:. Patient seen and assessed by myself. Comfortable at this time after receiving 75 mcg fentanyl by EMS. Vital signs stable, afebrile. IV labs , fluid bolus, and CT ordered. 11:40 a.m.: Labs reviewed by myself. CT discussed with Dr. Corral. Patient has "an impressive amount of stool" descending colitis with possible underlying diverticulitis, diverticulosis proximal to this with circumferential bowel wall thickening. No perforation or abscess. Results discussed with patient and family. Admission recommended then they agree with this. She is comfortable at this time and has been passing stool in the ED. Discussed with Gemini from hospitalist service, admit to Dr. Rowell. CHIEF COMPLAINT: Abdominal pain, constipation HPI: 88-year-old female past medical history of atrial fibrillation, hypertension, multiple myeloma currently on treatment, diabetes, and diverticulosis, presents to the emergency department with generalized abdominal pain over the last 2 weeks, worse today. Patient reports 9 days ago she developed increased abdominal pain with fever. She had leftover Augmentin that she began taking. Her symptoms were relatively unchanged despite a 7 day course of antibiotics and today she noted worsening pain. She reports no significant bowel movement for 2 weeks and difficulty passing flatus. No reported fever recently. No vomiting. She has had decreased appetite over the last 2-3 days. She has had prior abdominal wall surgery. She is undergoing treatment for multiple myeloma followed by Dr. Fall. She is also followed by GI, Dr. Gardiner. She does not recollect last colonoscopy she had. She is taking atrial fibrillation medications compliantly and denies chest pain and shortness of breath. She is not oxygen dependent at home. PAST MEDICAL HISTORY: Hypertension, atrial fibrillation, multiple myeloma, diabetes, diverticular disease See nurse/triage notes for additional history if applicable Pertinent Past Surgical History: Appendectomy, cholecystectomy Family History: Noncontributory Social History: , here with her , nonsmoker REVIEW OF SYSTEMS: All other systems negative Constitutional: Positive for recent fever, no chills, positive for recent appetite change. Cardiovascular: No chest pain, no palpitations. Respiratory: No cough, no shortness of breath. Gastrointestinal: Positive for abdominal pain, denies vomiting, positive for constipation. Genitourinary: No hematuria, dysuria, flank pain, pelvic pain Musculoskeletal: No back pain, joint swelling, joint pain, myalgias. Skin: No rashes, color change. Neurological: No headache, dizziness, weakness. PHYSICAL EXAM: General Appearance: Alert, oriented, appropriate, cooperative, frail, thin, NAD , well hydrated, non-toxic appearing, mildly hypertensive, afebrile no hypoxia. HEENT: Oropharynx with dry mucous membranes. Dentition without abnormality. Neck: Supple, nontender, no lymphadenopathy, no midline pain, FROM, no meningismus. Respiratory: There are no retractions, lungs are clear to auscultation. Cardiac: Regular rate and rhythm, no murmurs or gallops. Gastrointestinal: Abdomen is soft, mildly distended, generalized tenderness most notably to left lower quadrant, hypoactive bowel sounds normal, no masses/ hernia, no rigidity, guarding or focal peritoneal findings. Neurological: [ Alert and oriented x 3, CN 2-12 grossly intact Skin: Warm, dry, no rashes, no nodules on palpation. Musculoskeletal: Extremities are symmetrical, full range of motion, no tenderness, deformity, swelling, or erythema. No asymmetric lower extremity edema or swelling. Psychiatric: Patient is oriented X 3, there is no agitation. MEDICAL DECISION MAKING: Patient was seen independently. Secondary supervising physician at time of evaluation was Dr. Pascual . Diagnosis: Constipation, Colitis, Diverticulosis, Abdominal pain. New, requires workup Summary: See Assessment and Plan for summary of ED visit Clinical lab tests: ordered / reviewed. Independent visualization of images, tracing, or specimens: Yes / No. Decision to obtain medical records or history from someone other than the patient: Patient's family Review / Summarize previous medical records: Reviewed past laboratory studies Discussed patient with another provider: Gemini from hospitalist service, radiology Patient Progress: Stable for admission. - Diagnostics Imaging Results: Imaging Impressions Abdomen CT 06/21/18 09:14 Impression: 1. Colitis involving the descending and sigmoid colon. Long segment of colitis is atypical for bland diverticulitis. No portal venous occlusion or arterial occlusion to suggest bowel ischemia. 2. Trace free fluid in the pelvis. No abscess or bowel perforation. 3. Mild biliary dilation unchanged since 2018 and likely sequela of previous cholecystectomy. Findings discussed with Emergency Department physician digital sales assistant, Barry Waller on 06/21/2018 at 11:27 a.m. - History Smoking Status: Never smoked - Objective Vital Signs: Initial Vital Signs Temperature (C) 36.4 C 06/21/18 09:05 Heart Rate 62 06/21/18 09:05 Respiratory Rate 16 06/21/18 09:05 Blood Pressure 135/68 H 06/21/18 09:05 O2 Sat (%) 91 L 06/21/18 09:05 O2 Delivery Mode Room Air Allergies/Adverse Reactions: aspirin Allergy (Verified 05/17/18 16:33) bleeding ciprofloxacin Allergy (Verified 06/15/17 08:40) Vomiting Sulfa (Sulfonamide Antibiotics) Allergy (Verified 06/14/17 19:45) Home Medications: Medication Instructions Recorded Ranitidine HCl [Zantac] 150 mg PO DAILY 09/17/16 Acyclovir [Zovirax 400 mg (*)] 400 mg PO BID 05/17/18 Cyanocobalamin (Vitamin B-12) 3,000 mcg SL DAILY 05/17/18 [Vitamin B-12] Dexamethasone [Decadron 4 MG (*)] 20 mg PO TH 05/17/18 Lenalidomide [Revlimid] 10 mg PO HS 05/17/18 Levothyroxine [Synthroid 50 mcg 50 mcg PO DAILY06 05/17/18 (*)] Prochlorperazine Maleate 10 mg PO TID PRN 05/17/18 [Compazine 10mg (*)] Apixaban [Eliquis] 2.5 mg PO BID #60 tab 05/18/18 Diltiazem Cd [Cardizem ER 120 MG 120 mg PO DAILY #60 cap 05/18/18 (*)] Laboratory Results: Laboratory Results 06/21/18 09:05 06/21/18 09:05 06/21/18 06/21/18 09:05 09:05 WBC 6.53 10^3/uL 10^3/uL (3.80-9.50) RBC 4.36 10^6/uL 10^6/uL (4.18-5.33) Hgb 13.1 g/dL g/dL (12.6-16.3) Hct 39.9 % % (38.0-47.0) MCV 91.5 fL fL (81.5-99.8) MCH 30.0 pg pg (27.9-34.1) MCHC 32.8 g/dL g/dL (32.4-36.7) RDW 14.0 % % (11.5-15.2) Plt Count 118 10^3/uL L 10^3/uL (150-400) MPV 11.6 fL fL (8.7-11.7) Neut % (Auto) 48.0 % % (39.3-74.2) Lymph % (Auto) 31.5 % % (15.0-45.0) Emmons % (Auto) 18.7 % H % (4.5-13.0) Eos % (Auto) 0.5 % L % (0.6-7.6) Baso % (Auto) 0.5 % % (0.3-1.7) Nucleat RBC Rel Count 0.0 % % (0.0-0.2) Absolute Neuts (auto) 3.14 10^3/uL 10^3/uL (1.70-6.50) Absolute Lymphs (auto) 2.06 10^3/uL 10^3/uL (1.00-3.00) Absolute Monos (auto) 1.22 10^3/uL H 10^3/uL (0.30-0.80) Absolute Eos (auto) 0.03 10^3/uL 10^3/uL (0.03-0.40) Absolute Basos (auto) 0.03 10^3/uL 10^3/uL (0.02-0.10) Absolute Nucleated RBC 0.00 10^3/uL 10^3/uL (0-0.01) Immature Gran % 0.8 % % (0.0-1.1) Immature Gran # 0.05 10^3/uL 10^3/uL (0.00-0.10) Sodium 134 mEq/L L mEq/L (135-145) Potassium 3.3 mEq/L L mEq/L (3.5-5.2) Chloride 105 mEq/L mEq/L (97-110) Carbon Dioxide 21 mEq/l L mEq/l (22-31) Anion Gap 8 mEq/L mEq/L (6-14) BUN 12 mg/dL mg/dL (7-23) Creatinine 0.7 mg/dL mg/dL (0.6-1.0) Estimated GFR > 60 Glucose 122 mg/dL H mg/dL (70-100) Calcium 7.5 mg/dL L mg/dL (8.5-10.4) Medications Given: Discontinued Medications Sodium Chloride (Ns) 500 mls @ 0 mls/hr IV EDNOW ONE; Wide Open PRN Reason: Protocol Stop: 06/21/18 09:14 Last Admin: 06/21/18 09:41 Dose: 500 mls Departure - Departure Disposition: Home, Routine, Self-Care
[2018-06-21 09:25] LABS: PLATELET COUNT 118 10^3/uL (150-400)
[2018-06-21] MEDS ORDERED: PROCHLORPERAZINE MALEATE 10 MG TAB PO PRN (14:56)
[2018-06-21] MEDS ORDERED: ONDANSETRON DISINTEGRATING 4 MG TAB PO PRN (15:03)
[2018-06-21] MEDS ORDERED: ACETAMINOPHEN 325 MG TAB PO PRN (15:03)
[2018-06-21] MEDS ORDERED: ONDANSETRON 4 MG/2 ML VIAL IVP PRN (15:03)
[2018-06-21] MEDS ORDERED: HYDROmorphONE/DILAUDID 1 MG/ML INJ IVP PRN (15:03)
[2018-06-21] MEDS: NS 1,000 ML IV SCH (16:07)
[2018-06-21 16:31] LABS: INR 1.31 (0.83-1.16); PROTIME(PATIENT) 15.7 SEC (12.0-15.0)
--- NOTE | 2018-06-21 16:55 | GHP ---
[f rep st] HISTORY AND PHYSICAL DATE OF ADMISSION: 06/21/2018 Ms. Carranza is a pleasant 88-year-old female with a history of recently-diagnosed multiple myeloma, recurrent diverticulitis, and atrial fibrillation, on anticoagulation, presents with a couple-day hi story of increasing abdominal pain. She was recently admitted about a month ago, started on treatmen t. In May of this year, she was readmitted on the 17 of May with new atrial fibrillation with rapid ventricular response. She said really since these hospitalizations she has struggled to have bowel movements, although she has had a couple of small ones since being here. She has had left lower quadrant abdominal pain that feels awfully similar to her previous episodes of diverticulitis. She received a course of Augmenti n with no improvement. When I speak with her, she is originally on the bed alexander, then she got off. S he says she had a vagal episode when using the bed alexander. She has not had nausea or vomiting. She has not seen blood in her stool or melena. REVIEW OF SYSTEMS: Complete 10-point review of systems conducted, negative except as noted in the HP I. PAST MEDICAL HISTORY: Atrial fibrillation, multiple myeloma, recently diagnosed, hypertension, type 2 diabetes, A1c of 6, cholecystectomy, appendectomy, partial right colectomy at the time of her appen dectomy. SOCIAL HISTORY: She was originally from [facility], identifies as a [place] but lives here in [place] . She is a nonsmoker, nondrinker. ALLERGIES: Cipro, aspirin, and sulfa. HOME MEDICATIONS: Acyclovir, apixaban, B12, dexamethasone 20 on , diltiazem, Revlimid, levot hyroxine, ranitidine. FAMILY HISTORY: Parents . PHYSICAL EXAMINATION: VITAL SIGNS: Temp 37, blood pressure 134/67, pulse 62, breathing 18 times a m inute, 94% on room air. GENERAL: No acute distress. HEENT: Sclerae anicteric. Oropharynx clear. Mucous membranes moist. NECK: Supple, without lymphadenopathy or JVD. LUNGS: Clear to auscultati on bilaterally. HEART: S1, S2. ABDOMEN: Soft, nontender, nondistended. There is some tenderness in the left lower quadrant, without rebound or guarding. Bowel sounds are present. LOWER EXTREMITIE S: Without edema. Calves are nontender. SKIN: Without rash. NEUROLOGIC: Exam is nonfocal. LABS: White count 6.5, hematocrit 39, platelets 118, which is slightly low. Sodium 134, potassium 3 .3, chloride 105, bicarb 21, BUN 8, creatinine 0.7, glucose 122. Calcium is low at 7.5. CT images r akanksha, interpreted by me, show significant constipation. There is some pericolonic stranding and t hickening in the descending and sigmoid colon. There is trace fluid in the pelvis, unchanged biliary dilation suspected to be the sequelae of prior cholecystectomy. Discussed the case with Barry rosado of the emergency department. ASSESSMENT/PLAN: 88-year-old female with constipation, likely diverticulitis, at least colitis. 1. Colitis/diverticulitis: It is not uncommon patients with recurrent diverticulitis can have a fla re with constipation. I will start her on ceftriaxone and Flagyl. She does not have peritoneal sign s, abscess, or free air. 2. Constipation: Patient is clearly constipated. I have started her on t.i.d. MiraLAX. If that do es not work, we will try mag citrate and bowel prep. 3. Atrial fibrillation: Continue her apixaban. 4. Multiple myeloma: Continue her Revlimid. 5. Prophylaxis: She is therapeutically anticoagulated. DISPOSITION: Inpatient status. /[id number]/MODL
[2018-06-21] MEDS: POLYETHYLENE GLYCOL 3350 17 GM PKT PO SCH ×2 (17:43→20:58)
[2018-06-21] MEDS: ACYCLOVIR 400 MG TAB PO SCH (20:54)
[2018-06-21] MEDS: APIXABAN 2.5 MG TAB PO SCH (20:54)
[2018-06-21] MEDS: FAMOTIDINE 20 MG TAB PO SCH (20:54)
[2018-06-21] MEDS: Lenalidomide [Revlimid] 10 MG PO SCH (20:59)
--- NOTE | 2018-06-21 21:37 | PDMN ---
Medical Necessity Medical necessity: MCG M150 Diverticulitis, acute, A-2 days: 88 yo w/ c/o abd pain. Eval reveals colitis/diverticulitis in setting of constipation. Pt started on IV flagyl, IV fluids, IV antibx. Anticipate>2MN for ongoing tx of the above requiring parenteral flagyl/antibx, IVF. BC pending. Hx afib on anticoag, multiple myeloma, HTN, DM
[2018-06-22] MEDS: NS 1,000 ML IV SCH ×2 (02:00→11:28)
[2018-06-22] MEDS: LEVOTHYROXINE 50 MCG TAB PO SCH (05:04)
[2018-06-22 05:48] LABS: PLATELET COUNT 92 10^3/uL (150-400)
[2018-06-22] MEDS: APIXABAN 2.5 MG TAB PO SCH ×2 (08:28→21:19)
[2018-06-22] MEDS: FAMOTIDINE 20 MG TAB PO SCH (08:28)
[2018-06-22] MEDS: ACYCLOVIR 400 MG TAB PO SCH ×2 (08:29→21:19)
[2018-06-22] MEDS: DILTIAZEM CD 120 MG CAP PO SCH (08:29)
[2018-06-22] MEDS: POLYETHYLENE GLYCOL 3350 17 GM PKT PO SCH ×3 (08:29→21:19)
[2018-06-22] MEDS: CYANOCOBALAMIN 3000 MCG SL SCH (09:56)
--- NOTE | 2018-06-22 14:57 | HOSPPROG ---
Hospitalist Progress Note Assessment/Plan: 88 yo F w MM, diverticulitis here w LLQ pain, sigmoid/descending colitis and likely diverticulitis constipation: resolved this can serve as a precipitant of diverticulitis in patients w recurrrent diverticula ?diverticulitis: reasonable to treat as such ceftriaxone/flagyl MM: continue revlimid proph: anticoagulated hypokalemia: replete and advance diet af: clinically in sinus dispo: inpt Subjective: moved bowels multiple times. feels better. afebrile Objective: Vital Signs Temp Pulse Resp BP Pulse Ox 36.5 C 67 16 119/58 L 94 06/22/18 11:50 06/22/18 11:50 06/22/18 11:50 06/22/18 11:50 06/22/18 11:50 Laboratory Results 06/22/18 05:25 06/22/18 05:25 06/21/18 06/22/18 06/23/18 05:59 05:59 05:59 Intake Total 447 1500 Balance 447 1500 PT 15.7 SEC (12.0-15.0) H 06/21/18 16:05 INR 1.31 (0.83-1.16) H 06/21/18 16:05 - Physical Exam Constitutional: no apparent distress, appears nourished Eyes: PERRL, anicteric sclera Ears, Nose, Mouth, Throat: moist mucous membranes, hearing normal Cardiovascular: regular rate and rhythym, no murmur, rub, or gallop Respiratory: no respiratory distress, no rales or rhonchi Gastrointestinal: normoactive bowel sounds, other, No guarding (some LLQ tenderness), No rebound Genitourinary: hemorrhoids, No brooks in urethra Skin: warm, normal color Musculoskeletal: full muscle strength Neurologic: AAOx3 Psychiatric: interacting appropriately ICD10 Worksheet Patient Problems: Problems Problem Status Onset Acute diverticulitis Acute Diarrhea Acute Diverticulitis Acute Exertional dyspnea Acute New onset atrial fibrillation Acute Rectal bleeding Acute
[2018-06-22] MEDS: POTASSIUM CL 20 MEQ/15 ML UDCUP PO SCH (15:31)
--- NOTE | 2018-06-22 15:48 | ASMTCMCOM ---
CM Note CM Note Notes: Patient admitted w abdominal pain. She was constipated which likely precipitated a bout of diverticulitis. She is being treated w abx and is feeling better after moving bowels. She is also undergoing tx for multiple myeloma. She is normally independent - lives w and has a son nearby. PT has cleared her for home. No d/c needs anticipated. Current CM discharge plan: home independent Date Signed: 06/22/2018 03:47 PM Electronically Signed By:Laina Barnes RN
[2018-06-22] MEDS: Lenalidomide [Revlimid] 10 MG PO SCH (20:45)
[2018-06-23] MEDS: LEVOTHYROXINE 50 MCG TAB PO SCH (05:26)
[2018-06-23] MEDS: FAMOTIDINE 20 MG TAB PO SCH (05:26)
[2018-06-23] MEDS: DILTIAZEM CD 120 MG CAP PO SCH (08:00)
[2018-06-23] MEDS: ACYCLOVIR 400 MG TAB PO SCH (08:01)
[2018-06-23] MEDS: APIXABAN 2.5 MG TAB PO SCH (08:01)
[2018-06-23] MEDS: CYANOCOBALAMIN 3000 MCG SL SCH (08:02)
[2018-06-23] MEDS: POTASSIUM CL 20 MEQ/15 ML UDCUP PO SCH (08:02)
[2018-06-23] MEDS: POLYETHYLENE GLYCOL 3350 17 GM PKT PO SCH (08:02)
[2018-06-23 11:49] VITALS: BP 121/72
--- NOTE | 2018-06-23 14:13 | HOSPPROG ---
Hospitalist Progress Note Assessment/Plan: 88 yo F w MM, diverticulitis here w LLQ pain, sigmoid/descending colitis and likely diverticulitis constipation: resolved this can serve as a precipitant of diverticulitis in patients w recurrrent diverticula ?diverticulitis: reasonable to treat as such ceftriaxone/flagyl complete course w augmentin at home MM: continue revlimid proph: anticoagulated hypokalemia: replete and advance diet given list of high potassium foods- will eat at home af: clinically in sinus dispo: home today > 30 minutes on dc Subjective: feels well. intolerant of po potassium Objective: Vital Signs Temp Pulse Resp BP Pulse Ox 37.0 C 59 L 16 121/72 H 94 06/23/18 11:47 06/23/18 11:47 06/23/18 11:47 06/23/18 11:47 06/23/18 11:47 Laboratory Results 06/22/18 05:25 06/23/18 06:43 06/22/18 06/23/18 06/24/18 05:59 05:59 05:59 Intake Total 447 2745 Balance 447 2745 PT 15.7 SEC (12.0-15.0) H 06/21/18 16:05 INR 1.31 (0.83-1.16) H 06/21/18 16:05 - Physical Exam Constitutional: no apparent distress, appears nourished Eyes: PERRL, anicteric sclera Ears, Nose, Mouth, Throat: moist mucous membranes, hearing normal Cardiovascular: regular rate and rhythym, no murmur, rub, or gallop Respiratory: no respiratory distress, no rales or rhonchi Gastrointestinal: normoactive bowel sounds, soft, non-tender abdomen Genitourinary: no bladder fullness, No brooks in urethra Skin: warm, normal color Musculoskeletal: full muscle strength Neurologic: AAOx3 ICD10 Worksheet Patient Problems: Problems Problem Status Onset Acute diverticulitis Acute Diarrhea Acute Diverticulitis Acute Exertional dyspnea Acute New onset atrial fibrillation Acute Rectal bleeding Acute
--- NOTE | 2018-06-23 18:11 | GDS ---
[f rep st] DISCHARGE SUMMARY DISCHARGE DIAGNOSES: 1. Constipation with colitis, likely diverticulitis. 2. Multiple myeloma. 3. Hypokalemia. 4. Abdominal pain. 5. Constipation. 6. Hyponatremia. HISTORY AND HOSPITAL COURSE: Please see admission history and physical by Dr. Kenyon Rowell. The maki villegas presented with abdominal pain. She was found to have a colon with descending and sigmoid coli tis, cannot rule out diverticulitis. Clinically, it was similar to her previous episodes of divertic ulitis. The patient was given multiple doses of MiraLAX. She moved her bowels with significant improvement. She was treated with antibiotics with improvement. I do believe this represents an episode of diver ticulitis in this patient, who typically does not have constipation, but has had diverticulitis previ ously. She was treated with ceftriaxone and Flagyl, and was transitioned to Augmentin as an outpatie nt. She was discharged home. She was slightly hypokalemic at 3.0. She did not tolerate the pills well. She was given a list of f oods that she could eat that were higher in potassium that she will follow up with. She has a history of atrial fibrillation and was clinically in sinus on anticoagulation. Her multipl e myeloma is currently being treated. /[id number]/MODL
[2018-06-24] MEDS ORDERED: DEXAMETHASONE 4 MG TAB PO SCH (14:56)
== END 2018-06-23 15:06 | disposition home or self-care (01) | DRG 392 ==
LOC: EDUNIT# → F3E 13:06 → OBSVTOIN 15:05
PROVIDERS: ADMIT Internal Medicine; ATTEND Internal Medicine
DX: K57.32 Diverticulitis of large intestine without perforation or abscess without bleeding (principal); K52.9 Noninfective gastroenteritis and colitis, unspecified; E87.6 Hypokalemia; K59.00 Constipation, unspecified; C90.00 Multiple myeloma not having achieved remission; I48.91 Unspecified atrial fibrillation; E11.9 Type 2 diabetes mellitus without complications; I10 Essential (primary) hypertension; Z79.01 Long term (current) use of anticoagulants
CPT/HCPCS: 84481-90; 97161-GP; 97165-GO; J0696; Q9967